=== PATIENT | female | born 1950 | race Caucasian/White ===

== ENCOUNTER → 2017-01-06 | Outpatient (CLI) | payer OTHER ==
[~2017-01-06] MED LIST: DOXY-300 PO; LEVO50TA PO; MEDLIST
[2017-01-13 05:32] LABS: ANTI-CENTROMERE AB <1.0 NEG AI (<1.0 NEG); ANTI-SS-A >8.0 POS AI (<1.0 NEG); ANTI-SS-B >8.0 POS AI (<1.0 NEG); DNA ds CRITHIDIA NEGATIVE (NEGATIVE); Sm Antibody <1.0 NEG AI (<1.0 NEG)
[2017-01-14 11:14] LABS: ANA TITER > OR = 1:1280 TITER (<1:40)
== END | disposition home or self-care (01) ==
LOC: C.LAB1850 14:37
PROVIDERS: ATTEND Internal Medicine Rheumatology
DX: M35.00 Sjogren syndrome, unspecified (principal); R76.8 Other specified abnormal immunological findings in serum

== ENCOUNTER 2017-03-12 07:16 | Emergency (ER) | payer OTHER ==
[~2017-03-12] VITALS: Ht 162.6 cm; Wt 72.0 kg
[~2017-03-12 07:16] MED LIST changes: -DOXY-300 PO; -LEVO50TA PO
[2017-03-12 07:18] VITALS: BP 141/84; PULSE 73; TEMP 36.5; O2SAT 95; Ht 162.6 cm; Wt 72.0 kg
[2017-03-12] MEDS ORDERED: DOXY-300 PO (07:54)
--- NOTE | 2017-03-12 07:54 | EMERGENCY ROOM VISIT NOTE ---
History First contact with patient: 07:22 Chief Complaint: BITE Stated Complaint: SWOLLEN PATCH ON LEFT HIP FROM BITE History of Present Illness The patient is a 67 year old female who presents to the Emergency Room via private vehicle with complaints of "swollen patch on left hip from bite". The patient states that yesterday at approximately 10:30 AM, she was wearing exercise pants, when she saw and felt a sting/bite on the left lateral hip. She states that she saw a large fly. She states that the area was initially itchy and painful, however now it is red hot and swollen. Her tetanus is not up -to-date. She denies any throat swelling, trouble breathing, fevers, chills, nausea, vomiting. Review of Systems A complete 10-point Review of Systems was discussed with the patient, with pertinent positives and negatives listed in the History of Present Illness. All remaining Review of Systems questions can be considered negative unless otherwise specified. Past Medical/Surgical History Skin problems. Family History No significant family history. Social History Smoking Status: Never Smoker Patient lives at home and works locally. Current/Historical Medications Scheduled Doxycycline (Monohydrate) (Doxycycline), 100 MG PO BID Levothyroxine Sodium (Synthroid), 50 MCG PO DAILY Physical Exam Vital Signs Date Time Temp Pulse Resp B/P (MAP) Pulse Ox O2 Delivery O2 Flow Rate FiO2 03/12/17 07:18 36.5 73 18 141/84 95 Room Air Physical Exam VITAL SIGNS - Vital signs and nursing notes were reviewed. Afebrile, hypertensive at 141/84, non-tachycardic and saturating well on room air 95%. GENERAL -67-year-old female appearing her stated age who is in no acute distress. Communicates well with provider and answers questions appropriately. SKIN - overlying the left lateral hip there is a 6 cm x 7 cm erythematous region. No fluctuant mass appreciated. No drainage. LUNGS - Chest wall symmetric without accessory muscle use, intercostals retractions, or central cyanosis. Normal vesicular breath sounds CTA B/L. No wheezes, rales, or rhonchi appreciated. CARDIAC - RRR with S1/S2. No murmur, rubs, or gallops appreciated. Medical Decision & Procedures Medications Administered Medications (Trade) Dose Ordered Sig/Joan Route Start Time Stop Time Status Last Admin Dose Admin Diphtheria/ Pertussis/Tetanus Vacc (Adacel Inj) 0.5 ml ONCE ONCE IM. 03/12/17 08:15 03/12/17 08:16 DC 03/12/17 08:12 0.5 ML Medical Decision Patient was seen and evaluated as above. After obtaining a thorough history and physical examination it was evident the patient was likely experiencing a cellulitic infection of the left lateral hip. She has no fevers, chills, nausea or vomiting. No evidence of SIRS or sepsis. There is no purulent drainage or evidence of abscess. She'll be treated in the outpatient setting with oral antibiotics. She was offered Keflex and Bactrim, but notes that taking Bactrim in the past has been difficult. For this reason, I will choose doxycycline. The area was circled with a felt tip pen. She was instructed to return if the redness extended beyond 1 inch. She was informed that if this worsens she may need IV antibiotics, and potentially admission to the hospital secondary to infection. I informed her that broad-spectrum antibiotics at this time are warranted. She verbalized understanding. Patient case was also discussed with my attending, who also personally evaluated the patient. She was given her tetanus shot. She appears stable for discharge. She was educated upon worrisome symptoms which to return, had questions prior to discharge, and was discharged home in good condition. She is a follow-up with her family doctor regarding today's visit. In evaluation treatment this patient following differential diagnoses were entertained: Sialitis, abscess, localized skin reaction, among others. Medication Reconcilliation Current Medication List: was personally reviewed by me Blood Pressure Screening Patient's blood pressure: Elevated blood pressure Blood pressure disposition: Elevated BP felt to be situational, Did not require urgent referral Impression Primary Impression: Cellulitis Departure Information Dispostion Home / Self-Care Condition GOOD Prescriptions Doxycycline (Monohydrate) (Doxycycline) 100 Mg Cap 100 MG PO BID for 10 Days, #20 TABS Prov: James Siddiqi PA-C 03/12/17 Referrals Praveen Niec M.D. (PCP) Forms HOME CARE DOCUMENTATION FORM, IMPORTANT VISIT INFORMATION Patient Instructions My [facility] Additional Instructions You were seen in the emergency department for an infection on your left lateral thigh. You have been prescribed Doxycycline to be taken as prescribed. This is an antibiotic. All antibiotics have the potential to cause diarrhea. Stop this medication and contact a medical provider if you were to develop any significant adverse side effects including: wheezing, shortness of breath, passing out, vomiting, or a diffuse rash. Always take antibiotics as directed and COMPLETE the ENTIRE course regardless of the improvement of your symptoms. Protect yourself with sunscreen while on this antibiotic as it increases your skin's sensitivity to the light and cause bad sunburns. In addition, you should be sure to take this pill after eating. Make sure the pill is completely swallowed as this medication can cause irritation to the lining of the esophagus. Do NOT drink milk or eat anything with large amounts of Calcium in them 1 hour prior to taking this medication as this will decrease the effectiveness of the medication. Please watch for worsening redness, swelling or drainage from the wound. If he started expressing nausea, vomiting, fevers or chills please return immediate. If the redness extends beyond the marked line by 1 inch please return. Please follow-up with your family doctor regarding today's visit. Please return to the emergency department with any new/concerning symptoms.
[2017-03-12] MEDS ORDERED: LEVO50TA PO (08:00)
[2017-03-12] MEDS ORDERED: DIPHTHERIA/TETANUS/PERTUSSIS 0.5 ML SYR/VIAL IM. ONE (08:15)
== END 2017-03-12 07:55 | disposition home or self-care (01) ==
LOC: C.EDB 07:17 → C.EDA 07:55
DX: L03.116 Cellulitis of left lower limb (principal); Z23 Encounter for immunization

== ENCOUNTER 2017-09-30 04:47 | Inpatient (IN) | payer OTHER ==
[~2017-09-30] VITALS: Ht 160 cm; Wt 70.2 kg
[~2017-09-30 04:47] MED LIST changes: +DOXY-300 PO; -MEDLIST
--- NOTE | 2017-09-30 06:22 | EMERGENCY ROOM VISIT NOTE ---
History Report prepared by Maria Teresa: Lana Bryant Under the Supervision of: Dr. Taylor Rodriguez D.O. First contact with patient: 05:09 Chief Complaint: CARDIAC ASSESSMENT Stated Complaint: GENERAL ILLNESS Nursing Triage Summary: Pt reports exercising yesterday morning, cardio and lifting weights. Last night around 10pm patient awoke from her sleep feeling the left side of her neck racing and she felt like her heart was skipping beats. Pt reports that her heart rate is normaly in the 60s resting but has been in the 70s -80s all night. Pt also had increase in blood pressure, EMS reports 163/100. Pt does not take any medication for blood pressure. Pt denies SOB or chest pain. Pt denies any pain at this time. hx mitral valve prolapse. History of Present Illness The patient is a 67 year old female who presents to the Emergency Room for a cardiac assessment secondary worsening episodes of her heart pounding that began last night. The patient states that last night she went to bed feeling like her heart was pounding, noting that when she woke up she was still experiencing the same symptom. She reports that after several hours, she noticed her heart rate did not lower and it began skipping beats. She notes that normally her heart rate is in the 60's, but as of last night it has been in the 70's and 80's. The patient denies any pain, but notes some discomfort in the middle of her sternum. The patient states that she worked out yesterday, which is normal for her. She reports that she was working in [place] 2 weeks ago , noting she was stressed and experienced some eye infections. The patient denies any personal or family history of heart disease. Source of History: patient Onset: last night Position: chest Quality: other (cardaic assessment secondary to chest pounding) Timing: other (persistent ) Review of Systems See HPI for pertinent positives & negatives. A total of 10 systems reviewed and were otherwise negative. Past Medical & Surgical Medical Problems: (1) Abnormal electrocardiogram [ECG] [EKG] (2) Chest pain (3) Skin problem Family History Patient reports no known family medical history. No pertinent family history. Social History Smoking Status: Never Smoker Drug Use: none Marital Status: single Housing Status: lives alone Occupation Status: employed Current/Historical Medications Scheduled Levothyroxine Sodium (Synthroid), 50 MCG PO DAILY Allergies Coded Allergies: Ciprofloxacin (Verified Allergy, Unknown, GI SYMPTOMS, 09/30/17) Quinolones (Unverified Allergy, Unknown, GI SYMPTOMS, 09/30/17) Meperidine (Unverified Adverse Reaction, Mild, NAUSEA, 09/30/17) Physical Exam Vital Signs Date Time Temp Pulse Resp B/P (MAP) Pulse Ox O2 Delivery O2 Flow Rate FiO2 09/30/17 08:05 74 12 97 09/30/17 08:00 145/88 09/30/17 07:52 125/75 09/30/17 07:35 71 8 92 09/30/17 07:30 125/75 09/30/17 07:15 72 8 96 09/30/17 07:00 128/79 09/30/17 06:48 157/91 09/30/17 06:45 73 8 96 09/30/17 06:30 77 19 149/104 95 Room Air 09/30/17 06:00 69 18 135/92 95 Room Air 09/30/17 05:35 69 09/30/17 05:30 69 20 120/81 96 Room Air 09/30/17 04:59 Room Air 09/30/17 04:59 Room Air 09/30/17 04:59 36.6 74 12 136/87 97 Room Air Physical Exam HEENT: Head - normocephalic and atraumatic Pupils are equal, round, and reactive to light. Extraocular eye muscles are intact, and sclera are anicteric. Nose - moist nasal mucosa without discharge. Mouth - moist buccal mucosa. Oropharynx is nonerythematous and there is no tonsillar exudate or edema noted. Neck: Supple; no JVD, nuchal rigidity, cervical lymphadenopathy, or auscultated bruits. Heart: Regular rate and rhythm. There is a normal S1 and S2 with no murmurs, clicks, or gallops appreciated. Lungs: Clear to auscultation bilaterally with no wheezes, rales, or rhonchi. Abdomen: Soft, completely nontender, nondistended, with good bowel sounds. There are no palpable pulsatile masses or hepatosplenomegaly. There is no guarding, rigidity, or rebound noted. Extremities: No evidence of cyanosis, clubbing, or edema. There are easily palpable peripheral pulses. Skin: warm and dry with good turgor and no rashes. Medical Decision & Procedures ER Provider Diagnostic Interpretation: Laboratory results per my review. CHEST ONE VIEW PORTABLE CLINICAL HISTORY: Atypical chest pain COMPARISON STUDY: No previous studies for comparison. FINDINGS: The cardiac and mediastinal contours are normal. There is no evidence of focal pulmonary consolidation. There is no evidence of failure. No pleural effusions are visualized.[An 8 mm nodule at the left lung base is quite dense despite its small size and therefore, it is felt to be postinflammatory IMPRESSION: No active disease in the chest. Electronically signed by: David Quinones M.D. 09/30/2017 7:03 AM Dictated Date/Time: 09/30/2017 7:02 AM Laboratory Results 09/30/17 06:23 09/30/17 06:23 Test 09/30/17 06:23 Red Blood Count 4.72 M/uL (4.2-5.4) Mean Corpuscular Volume 93.9 fL (80-100) Mean Corpuscular Hemoglobin 32.0 pg (25-34) Mean Corpuscular Hemoglobin Concent 34.1 g/dl (32-36) RDW Standard Deviation 47.1 fL (36.4-46.3) RDW Coefficient of Variation 13.7 % (11.5-14.5) Mean Platelet Volume 11.2 fL (7.4-10.4) Prothrombin Time 10.2 SECONDS (9.0-12.0) Prothromb Time International Ratio 1.0 (0.9-1.1) Anion Gap 8.0 mmol/L (3-11) Est Creatinine Clear Calc Drug Dose 62.1 ml/min Estimated GFR () 83.4 Estimated GFR (Non- 71.9 BUN/Creatinine Ratio 29.3 (10-20) Calcium Level 9.4 mg/dl (8.5-10.1) Total Bilirubin 0.5 mg/dl (0.2-1) Direct Bilirubin 0.1 mg/dl (0-0.2) Aspartate Amino Transf (AST/SGOT) 32 U/L (15-37) Alanine Aminotransferase (ALT/SGPT) 33 U/L (12-78) Alkaline Phosphatase 60 U/L (45-117) Total Creatine Kinase 148 U/L (26-192) Creatine Kinase MB 4.2 ng/ml (0.5-3.6) Creatine Kinase MB Ratio 2.8 (0-3.0) Total Protein 8.8 gm/dl (6.4-8.2) Albumin 3.5 gm/dl (3.4-5.0) Thyroid Stimulating Hormone (TSH) 3.540 uIu/ml (0.300-4.500) Laboratory results per my review. Medications Administered Medications (Trade) Dose Ordered Sig/Joan Route Start Time Stop Time Status Last Admin Dose Admin Aspirin (Aspirin Chew) 324 mg NOW STAT PO 09/30/17 08:01 09/30/17 08:05 DC 09/30/17 08:17 324 MG Procedure Oral aspirin ECG Indication: other (heart pounding) Rate (beats per minute): 68 Rhythm: normal sinus Findings: ST depression (lead 3 and aVF), T-wave inversion (Lateral) Comparison ECG Date: Significant changes from 12/2013 Change: Repeat EKG has same concerning changes. ED Course 0548: Past medical records reviewed. The patient was evaluated in room B8. A complete history and physical exam was performed. A twelve-lead EKG was obtained. Patient's electrocardiogram was interpreted by me. Patient had a chest x-ray as described above. An IV lock was initiated and labs were drawn as above. The patient was observing the supervisor curing room and pulse oximeter. I did review a report from an EKG done at [facility] within the last month. It was a normal EKG. 0715: I asked the nursing staff to repeat the patient's EKG with new lead placement. Repeat EKG has same concerning changes. The patient was given oral aspirin. I discussed the findings and plan with the patient and her son. 0720: Discussed the patient's case with [facility]. The patient will be evaluated for further management. Medical Decision The patient is a 67 year old female who presents to the ED for a cardiac assessment. Differential diagnosis includes acute coronary syndrome, GERD, anxiety, and pneumonia. The patient's laboratory results showed: normal white blood cell count, stable H&H, BUN of 24, creatinine of 0.8, glucose of 92, normal LFTs, negative cardiac enzymes, and normal TSH. This is a 67-year-old female patient who presents to the emergency department with some cardiac symptoms. She states that she awoke from sleep and was able to sense her heartbeat in her neck and felt that it was faster than usual. She then developed some discomfort in the epigastrium and lower chest. She became concerned and called 911. She did not think that she could drive herself to the hospital. While here in the emergency department, the patient's symptoms had resolved. Initial cardiac enzymes were negative. However, the patient's EKG was concerning for ischemia in comparison to an EKG from 2014 but also in relationship to an EKG she had within the past month. I've discussed the case with the [facility] Hospitalist and they will evaluate for further management. Medication Reconcilliation Current Medication List: was personally reviewed by me Blood Pressure Screening Patient's blood pressure: Normal blood pressure Consults Time Called: 0720 Consulting Physician: Anu Peters Returned Call: 0720 Discussed the patient's case with Anu Peters. The patient will be evaluated for further management. Impression Primary Impression: Palpitation Additional Impression: Acute electrocardiogram changes Scribe Attestation See HPI for pertinent positives & negatives. A total of 10 systems reviewed and were otherwise negative. Departure Information Dispostion Being Evaluated By Hospitalist Referrals Praveen Nice M.D. (PCP) Forms IMPORTANT VISIT INFORMATION Patient Instructions [facility] Problem Qualifiers
[2017-09-30 06:33] LABS: HEMATOCRIT 44.3 % (37-47); HEMOGLOBIN 15.1 g/dL (12.0-16.0); MEAN CELL VOLUME 93.9 fL (80-100); MEAN CORPUSCULAR HGB CONC 34.1 g/dl (32-36); MEAN PLATELET VOLUME 11.2 fL (7.4-10.4); PLATELET COUNT 249 K/uL (130-400); RED CELL DISTRIBUTION WIDTH CV 13.7 % (11.5-14.5); RED CELL DISTRIBUTION WIDTH SD 47.1 fL (36.4-46.3); WHITE BLOOD COUNT 4.95 K/uL (4.8-10.8)
[2017-09-30 06:48] LABS: ALBUMIN 3.5 gm/dl (3.4-5.0); ALT/SGPT 33 U/L (12-78); BLOOD UREA NITROGEN 24 mg/dl (7-18); CALCIUM 9.4 mg/dl (8.5-10.1); CARBON DIOXIDE 25 mmol/L (21-32); CREATININE 0.83 mg/dl (0.60-1.20); GLUCOSE 92 mg/dl (70-99); POTASSIUM 3.7 mmol/L (3.5-5.1); SODIUM 137 mmol/L (136-145)
[2017-09-30 06:58] LABS: ALKALINE PHOSPHATASE 60 U/L (45-117); AST/SGOT 32 U/L (15-37); CKMB 4.2 ng/ml (0.5-3.6); TOTAL PROTEIN 8.8 gm/dl (6.4-8.2)
--- NOTE | 2017-09-30 07:04 | DIAGNOSTIC IMAGING REPORT ---
CHEST ONE VIEW PORTABLE CLINICAL HISTORY: Atypical chest pain COMPARISON STUDY: No previous studies for comparison. FINDINGS: The cardiac and mediastinal contours are normal. There is no evidence of focal pulmonary consolidation. There is no evidence of failure. No pleural effusions are visualized.[An 8 mm nodule at the left lung base is quite dense despite its small size and therefore, it is felt to be postinflammatory IMPRESSION: No active disease in the chest. Electronically signed by: David Quinones M.D. 09/30/2017 7:03 AM Dictated Date/Time: 09/30/2017 7:02 AM
[2017-09-30] MEDS ORDERED: LEVO50TA PO (08:00)
[2017-09-30] MEDS ORDERED: ASPIRIN 324 MG CHEW PO STA (08:01)
[2017-09-30] MEDS ORDERED: NITROGLYCERIN 0.4 MG SL PER TAB CHARGE SL PRN (08:30)
[2017-09-30] MEDS ORDERED: ONDANSETRON INJ 2 MG/ML 2 ML VIAL IV PRN (08:30)
[2017-09-30] MEDS ORDERED: HEPARIN 25000 UNIT/500 ML D5W ONE (09:41)
[2017-09-30] MEDS ORDERED: HEPARIN SOD 5000 UNIT/0.5 ML CARP ONE (09:42)
[2017-09-30] MEDS ORDERED: HEPARIN 25,000 UNIT/500ML D5W 500 ML IV PRN (10:30)
--- NOTE | 2017-09-30 10:49 | HISTORY & PHYSICAL EXAMINATION ---
DATE OF ADMISSION: 09/30/2017 PRIMARY CARE PHYSICIAN: Meghan CHIEF COMPLAINT: Palpitation with a lower central chest discomfort since around 2:00 a.m. HISTORY OF PRESENT COMPLAINT: She is a 67-year-old female with significant past medical history including lupus erythematosus, Sjogren's disease, sicca syndrome, acquired hypothyroidism, apparently has been complaining of lower central chest discomfort associated with palpitation and tachycardia since 2:00 a.m. this morning. She is a 67-year-old female quite active who does regular exercise including Power training, swimming, biking, and walking and has been seen in [place] about 2 weeks ago. She came back from [place] about 1-1/2 weeks back and started to workout accordingly. While she was in [place], she was not doing anything much, almost resting and doing some official work and was in a lot of stress. She started to workout as usual of her routine and then in the evening, she was noted to have some pounding in her neck and she was thinking that her heart rate was getting high. She checked her pulse, it was 75. Her usual pulse rate is 60 according to her. She went to sleep at 8:39 and then at 2:00 a.m., she woke up with more palpitation, heart rate of 75, but no other symptoms. At 4:00 a.m., she again woke up with palpitation and some neck pounding and at that time, she did have some lower central chest discomfort with questionable nausea, but no other associated symptoms with it. No dizziness, no vomiting. No numbness or tingling in the left upper extremity, jaw or in the neck area. With this kind of symptoms, she came to the Emergency Room. At ER, she was free from pain and her apparent blood test came out to be unremarkable, but her EKG did show a new T inversion including II, III, aVF and V3 to V6, which were not there in August. So, from that point, she was advised for admission to the hospital. PAST MEDICAL HISTORY: Significant for lupus erythematosus, diffuse connected tissue disease, Sjogren's disease, sicca syndrome, chronic rhinitis, acquired hypothyroidism. PAST SURGICAL HISTORY: Significant for minor dental surgery, knee arthroscopy on the left, ligation of the oviduct, tonsillectomy as a child, total hysterectomy for fibroid. FAMILY HISTORY: No history of diabetes, hypertension, or ischemic heart disease in the family. SOCIAL HISTORY: She is single. She has 1 child. She does not smoke. She does not drink and she is quite active. ALLERGIES: CIPROFLOXACIN, meperidine, and quinolones. MEDICATIONS: The only medication she has been taking is Synthroid 75 mcg daily. She also takes multivitamins and calcium tablet as needed. REVIEW OF SYSTEMS: Other systems reviewed, unremarkable except those mentioned in history of present complaint. PHYSICAL EXAMINATION: GENERAL: On examination in the Emergency Room, she was not having any distress. HEENT: Unremarkable. NECK: Supple. VITAL SIGNS: Temperature 36.4, pulse 72, respiration rate initially 19, and blood pressure 125/75, saturation 96% on room air. HEENT: Unremarkable. NECK: Supple. No JVD, no bruit. CHEST: Clear to auscultate bilaterally. HEART: S1, S2 regular. ABDOMEN: Soft, benign, nontender, no organomegaly. Bowel sounds present. EXTREMITIES: Negative for any edema. MUSCULOSKELETAL: Did not show any acute arthritis involving any joint. CENTRAL NERVOUS SYSTEM: She was alert, awake, and oriented x3. No focal sensory and/or motor deficit appreciated. GENITAL: Did not reveal any rash and/or enlargement of lymph nodes. LABORATORY AND DIAGNOSTIC DATA: Labs noted today, white count was 4.95, H&H 15.1/44.3, platelet was 249. Sodium 137, potassium 3.7, chloride 105, carbon dioxide 25, BUN 24, creatinine 0.83. Random glucose 92. LFTs normal. CK-MB 4.2. Troponin was less than 0.015. TSH 3.540. Chest x-ray reported as no active disease in the chest. EKG was in sinus rhythm, rate of 71, normal axis, new T-wave inversion involving II, III, aVF and V4 to V6, which were not there in EKG of August. IMPRESSION AND PLAN: 1. Chest pain with EKG changes. The patient will be admitted to telemetry unit. Given the chest discomfort and EKG changes, we will start her on heparin. The pros and cons of heparin use discussed with the patient. She received 4 Baby aspirin. We will continue with aspirin. We will get a cardiology evaluation for further management for chest pain and EKG changes. We will do serial cardiac enzymes while in the hospital and an echocardiogram. 2. History of Sjogren's syndrome and also lupus erythematosus. She does not have any symptoms from the disease. She seems to be quite inactive and does not take any medications for that. She does not have any arthritic changes or any rash in the skin. 3. Hypothyroidism. Continue with replacement. 4. Gastrointestinal prophylaxis with Protonix. 5. Deep venous thrombosis prophylaxis with heparin IV. 6. Code status: She will be a full code. In my clinical assessment, the beneficiary meets criteria as per CMS for 2 midnights' stay in the hospital. [place]
[2017-09-30 14:15] VITALS: BP 133/90; PULSE 72; TEMP 36.7; O2SAT 96; Ht 160 cm; Wt 70.2 kg
[2017-09-30] MEDS: NSS + 20MEQ KCL 1000ML 1,000 ML IV SCH (15:51)
[2017-09-30] MEDS: PANTOprazole SOD 40 MG TAB PO SCH (16:00)
--- NOTE | 2017-09-30 17:30 | ECHOCARDIOGRAM REPORT ---
*NOTICE TO RECEIVING REPUBLICAN AGENCY This information is strictly Confidential and protected under [place] law. [place] law prohibits you from making any further disclosure of this information unless further disclosure is expressly permitted by the written consent of the person to whom it pertains or is authorized by law. A general authorization for the release of medical or other information is not sufficient for this purpose. Hospital accepts no responsibility if the information is made available to any other person, INCLUDING THE PATIENT. Interpretation Summary * Name: EMRE ABDUL Study Date: 09/30/2017 03:10 PM BP: 125/75 mmHg * Patient Location: .2T\S\E218\S\1 HR: 72 * : 1950 (M/d/yyy) Gender: Female Height: 62 in * Age: 67 yrs Ethnicity: [place] Weight: 165 lb * Ordering Physician: Snicere Smith * Referring Physician: Self, Referred * Performed By: Herlinda Leonard RDCS * * Reason For Study: Chest Pain * BSA: 1.8 m2 * The study was technically adequate. * -- Conclusions -- * There is normal left ventricular wall thickness. * No regional wall motion abnormalities noted. * Ejection Fraction = 55-60%. * Doppler findings do not suggest pulmonary hypertension. * Grade I diastolic dysfunction, (abnormal relaxation pattern). * There is no significant valvular heart disease. Procedure Details * A complete two-dimensional transthoracic echocardiogram was performed (2D, M-mode, Doppler and color flow Doppler). Left Ventricle * The left ventricle is normal in size. * There is normal left ventricular wall thickness. * Left ventricular systolic function is normal. * Ejection Fraction = 55-60%. * The left ventricular wall motion is normal. * No regional wall motion abnormalities noted. Right Ventricle * The right ventricle is normal in size and function. * The right ventricular systolic function is normal as assessed by tricuspid annular plane systolic excursion (TAPSE) (normal >1.5 cm). Atria * The left atrial size is normal. * Right atrial size is normal. * There is no evidence of atrial septal defect, but resolution does not allow assessment for a patent foramen ovale. Mitral Valve * The mitral valve is normal. * There is no mitral valve stenosis. * Significant mitral regurgitation is absent. Tricuspid Valve * The tricuspid valve is normal. * There is no tricuspid stenosis. * Significant tricuspid regurgitation is absent. * Doppler findings do not suggest pulmonary hypertension. Aortic Valve * The aortic valve is trileaflet. * Aortic stenosis is absent. * There is no significant aortic regurgitation. Pulmonic Valve * The pulmonary valve is not well seen, but the Doppler examination is normal without significant regurgitation or stenosis. Great Vessels * The aortic root and proximal ascending aorta are normal sized. Pericardium/Pleural * There is no pericardial effusion. Great Vessels * Normal inferior vena cava diameter and respiratory variation suggests normal central venous pressure. * Normal inferior vena cava size and collapsability with sniff indicates a normal right atrial pressure of 3 mmHg Left Ventricular Diastolic Function * Grade I diastolic dysfunction, (abnormal relaxation pattern). MMode 2D Measurements and Calculations IVSd 0.80 cm IVSs 1.4 cm LVIDd 3.9 cm LVIDs 2.6 cm LVPWd 1.3 cm LVPWs 1.6 cm IVS/LVPW 0.61 FS 34.4 % EDV(Teich) 66.7 ml ESV(Teich) 24.0 ml EF(Teich) 64.1 % EDV(cubed) 60.3 ml ESV(cubed) 17.0 ml EF(cubed) 71.7 % % IVS thick 72.6 % % LVPW thick 19.5 % LV mass(C)d 132.8 grams LV mass(C)dI 75.4 grams/m\S\2 LV mass(C)s 126.2 grams LV mass(C)sI 71.6 grams/m\S\2 SV(Teich) 42.8 ml SI(Teich) 24.3 ml/m\S\2 SV(cubed) 43.2 ml SI(cubed) 24.5 ml/m\S\2 Ao root diam 2.7 cm Ao root area 5.7 cm\S\2 ACS 1.7 cm LA dimension 3.3 cm LA/Ao 1.2 LVAd ap4 28.5 cm\S\2 LVLd ap4 7.4 cm EDV(MOD-sp4) 94.3 ml EDV(sp4-el) 93.1 ml LVAs ap4 14.4 cm\S\2 LVLs ap4 6.7 cm ESV(MOD-sp4) 28.8 ml ESV(sp4-el) 26.2 ml EF(MOD-sp4) 69.5 % EF(sp4-el) 71.9 % LVAd ap2 23.8 cm\S\2 LVLd ap2 7.7 cm EDV(MOD-sp2) 63.9 ml EDV(sp2-el) 62.0 ml LVAs ap2 11.3 cm\S\2 LVLs ap2 6.2 cm ESV(MOD-sp2) 19.4 ml ESV(sp2-el) 17.4 ml EF(MOD-sp2) 69.6 % EF(sp2-el) 71.9 % LVLd %diff 4.2 % EDV(MOD-bp) 78.9 ml LVLs %diff -7.77 % ESV(MOD-bp) 24.2 ml EF(MOD-bp) 69.3 % SV(MOD-sp4) 65.5 ml SI(MOD-sp4) 37.2 ml/m\S\2 SV(MOD-sp2) 44.5 ml SI(MOD-sp2) 25.3 ml/m\S\2 SV(MOD-bp) 54.7 ml SI(MOD-bp) 31.1 ml/m\S\2 SV(sp4-el) 66.9 ml SI(sp4-el) 38.0 ml/m\S\2 SV(sp2-el) 44.6 ml SI(sp2-el) 25.3 ml/m\S\2 Doppler Measurements and Calculations MV E max earle 44.6 cm/sec MV A max earle 78.6 cm/sec MV E/A 0.57 MV dec time 0.31 sec Ao V2 max 116.2 cm/sec Ao max PG 5.4 mmHg Ao max PG (full) 0.72 mmHg LV V1 max PG 4.7 mmHg LV V1 max 108.2 cm/sec PA V2 max 88.2 cm/sec PA max PG 3.1 mmHg PI max earle 118.1 cm/sec PI max PG 5.6 mmHg PI dec slope 130.7 cm/sec\S\2 PI P1/2t 264.7 msec
--- NOTE | 2017-09-30 18:29 | Cardiology Consultation ---
Cardiology Consultation Date of Consultation: Sep 30, 2017 History of Present Illness Patient is a 67 year old female seen in cardiology consultation per the request of Dr Smith. The patient's primary care provider is Dr. Praveen Nice of [facility]. This is her first cardiology encounter. She states that she was in her normal state of health yesterday. She exercised as per her typical routine and felt as if her heart rate was elevated. At 2 AM she felt her heart rate was elevated for her with heart rate in the mid 70 beat per minute range. She is able to get back to sleep and then at 4 AM she woke up again she took her heart rate by measuring her own carotid pulse with her fingers and noted a heart rate in the range of 88-90 bpm per her report with skipped beats. She called 911. Apparently her systolic blood pressure was in the range of 190 mmHg. She presented to the emergency room and no significant arrhythmia was found. Her initial EKG revealed sinus rhythm with borderline subtle T-wave inversions in inferior and lateral leads. Repeat EKG performed on 09/30/17 at 7:40 AM revealed normal sinus rhythm at 71 bpm with inverted T waves in the inferior leads as well as leads V3 to V6 suggestive of anterolateral ischemia. The patient actually had an outpatient EKG performed on 08/31/17 at [facility] for complaint of palpitations at that time normal sinus rhythm at 70 bpm was noted with mild diffuse nonspecific lateral T wave flattening but the T-wave inversions noted this morning are certainly a new development. During my discussion with her the patient was completely asymptomatic from an angina standpoint. 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 She typically exercises almost every day of the week for up to an hour and a half performing aerobic activity, swimming, and resistance training at the [facility]. 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 She had been in [place] during the months of April and June. She then returned for a week to [place], and his been back in the [facility] for 2 weeks. History Past Medical History: 1. History of overlap connective tissue disease, Sjogren's as per rheumatology note June 2016. She is not on long-term steroid therapy 2. Hypothyroidism Past Surgical History: 1. History of hysterectomy in 1989 for fibroids 2. Knee arthroscopy 2013 3. Colonoscopy 4. 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 Writes curriculum in [place]. Review Of Systems See above for pertinent positives & negatives. A total of 10 systems reviewed and were otherwise negative. Allergies Coded Allergies: Ciprofloxacin (Verified Allergy, Unknown, GI SYMPTOMS, 09/30/17) Quinolones (Unverified Allergy, Unknown, GI SYMPTOMS, 09/30/17) Meperidine (Unverified Adverse Reaction, Mild, NAUSEA, 09/30/17) Medications Reported Home Medications Medications Dose Route/Sig Max Daily Dose Days Date Category Synthroid (Levothyroxine Sodium) 50 Mcg Tab 50 Mcg PO DAILY 03/12/17 Reported Physical Exam Vital Signs (Last 8hrs): Last 8 Hrs Date Time Temp Pulse Resp B/P (MAP) Pulse Ox O2 Delivery O2 Flow Rate FiO2 09/30/17 14:15 36.7 72 18 133/90 96 Room Air 09/30/17 13:52 36.6 74 17 129/76 97 09/30/17 13:40 74 17 09/30/17 13:10 75 17 97 09/30/17 13:00 129/76 09/30/17 12:40 76 13 93 09/30/17 12:32 72 09/30/17 12:30 126/82 09/30/17 12:15 78 17 131/82 95 Room Air 09/30/17 12:10 75 96 09/30/17 12:00 131/82 09/30/17 11:40 72 16 95 09/30/17 11:30 129/87 09/30/17 11:10 73 14 98 09/30/17 11:00 128/81 09/30/17 10:40 75 23 09/30/17 10:31 119/82 09/30/17 10:10 74 10 97 09/30/17 10:00 140/81 General Appearance: Alert and Oriented x3. NAD. Head: Normocephalic Atraumatic. Eyes: PERRLA, EOMI, conjunctiva and sclera clear Neck: Supple. No carotid bruits noted. No JVD. No HJD. Respiratory: Breath sounds clear to auscultation bilaterally. No w/r/r. Cardiovascular: Reg rate and rhythm. S1 and S2 noted. No murmurs, rubs, gallops. PMI non displace. Abdomen: Normal bowel sounds, soft nontender. no abdominal bruits. Extremities: No edema, no clubbing or cyanosis. distal pulses 2/4 bilaterally. Neuro: No focal deficits. Psychiatric: Normal affect. Data Last Resulted 09/30/17 06:23 Last Resulted 09/30/17 06:23 Past 24 Hours Test 09/30/17 06:23 09/30/17 14:54 Range/Units Creatine Kinase MB 4.2 H 0.5-3.6 ng/ml Creatine Kinase MB Ratio 2.8 0-3.0 Prothromb Time International Ratio 1.0 0.9-1.1 Prothrombin Time 10.2 9.0-12.0 SECONDS Total Creatine Kinase 148 26-192 U/L Troponin I < 0.015 < 0.015 0-0.045 ng/ml EKG as outlined above. Telemetry with sinus rhythm without arrhythmia Assessment & Plan Impression: 67-year-old female 1. Presenting symptoms consistent with palpitations, perhaps increased cardiac awareness, no nury anginal symptoms 2. Patient however has developed interval T-wave inversion suggestive inferolateral ischemia on EKG that were not present on prior EKG performed as an outpatient at [facility] 3. No family history of ischemic heart disease 4. No history of dyslipidemia, most recent outpatient lipid panel performed in June 2017 included total cholesterol 174 LDL cholesterol 91, HDL cholesterol 67, tragus rate 74 Plan: The patient's cardiac enzymes have been negative 2 thus far. Resting echocardiogram revealed normal wall motion. She did have an episode where she had what she describes as a "blood clot" to her left eye when she was in [place] several months ago. She saw a local physician there was counseled that she should consider going on blood pressure medications. She recalls that her systolic blood pressure was in the mid 130 mm Hg range. She has had no visual changes and no interim problems. Her cholesterol is excellent. She exercises routinely. Recommend continuing unfractionated heparin drip for now and trending cardiac enzymes as well as repeat EKG. She is to going to be reassessed by Dr. Nicole was rounding for service tomorrow for further consideration of workup to include stress testing versus chronic catheterization. An outpatient desk clerks supervisor may be necessary for further delineation of her subjective palpitations since nothing is evidence thus far on telemetry.
[2017-09-30 18:45] VITALS: BP 135/84; PULSE 69; TEMP 36.6; O2SAT 96
[2017-09-30 23:43] VITALS: BP 110/68; PULSE 70; TEMP 36.5; O2SAT 95
[2017-10-01] MEDS: NSS + 20MEQ KCL 1000ML 1,000 ML IV SCH ×2 (01:00→11:21)
[2017-10-01 03:25] VITALS: BP 115/70; PULSE 66; TEMP 36.5; O2SAT 95
[2017-10-01] MEDS: LEVOTHYROXINE 50 MCG TAB PO SCH (05:39)
[2017-10-01 08:07] VITALS: BP 120/78; PULSE 61; TEMP 36.5; O2SAT 97
[2017-10-01] MEDS: PANTOprazole SOD 40 MG TAB PO SCH (08:11)
[2017-10-01] MEDS: ASPIRIN 81 MG ECTAB PO SCH (08:11)
[2017-10-01 08:45] LABS: HEMATOCRIT 43.5 % (37-47); HEMOGLOBIN 14.4 g/dL (12.0-16.0); MEAN CORPUSCULAR HEMOGLOBIN 31.1 pg (25-34); MEAN CORPUSCULAR HGB CONC 33.1 g/dl (32-36); MEAN PLATELET VOLUME 11.1 fL (7.4-10.4); PLATELET COUNT 239 K/uL (130-400); RED CELL DISTRIBUTION WIDTH SD 48.3 fL (36.4-46.3); WHITE BLOOD COUNT 4.63 K/uL (4.8-10.8)
[2017-10-01 09:20] LABS: CALCIUM 9.1 mg/dl (8.5-10.1); CREATININE 0.7 mg/dl (0.60-1.20); POTASSIUM 4.2 mmol/L (3.5-5.1)
[2017-10-01 09:38] LABS: PTT PATIENT 55.1 SECONDS (21.0-31.0)
[2017-10-01 12:15] VITALS: BP 138/78; PULSE 71; TEMP 36.7; O2SAT 94
--- NOTE | 2017-10-01 14:11 | Progress Note ---
Internal Med Progress Note Date of Service: Oct 01, 2017. Provider Documentation: SUBJECTIVE: The patient was seen and examined Denies any symptoms No more pounding in neck OBJECTIVE: Vital Signs-as noted below Exam: General-No distress at rest Eyes-normal ENT-normal Neck-supple Lungs-Clear to ausucltate bilaterally Heart-Regular,no murmur Abdomen-Benign,no masses,bowel sound present Extremities-NO edema Neuro-AAOx3 No focal neuro deficit Lab data as noted below. ASSESSMENT & PLAN: Chest pain with EKG changes. Has been on Aspirin and Heparin No ACS but EKG changes are not any better Appreciate cardiology input History of Sjogren's syndrome and also lupus erythematosus. No acute symptoms from that Not been taking any medications Hypothyroidism. Continue with replacement. Gastrointestinal prophylaxis with Protonix. Deep venous thrombosis prophylaxis with heparin IV. Code status: She will be a full code. DISPOSITION Likely home in an day or two Vital Signs: Date Time Temp Pulse Resp B/P (MAP) Pulse Ox O2 Delivery O2 Flow Rate FiO2 10/01/17 12:15 36.7 71 20 138/78 (98) 94 Room Air 10/01/17 08:07 36.5 61 18 120/78 (92) 97 Room Air 10/01/17 08:00 Room Air 10/01/17 04:05 Room Air 10/01/17 03:25 36.5 66 18 115/70 (85) 95 Room Air 10/01/17 00:05 Room Air 09/30/17 23:43 36.5 70 18 110/68 (82) 95 Room Air 09/30/17 20:00 Room Air 09/30/17 18:45 36.6 69 18 135/84 (101) 96 Room Air 09/30/17 14:15 36.7 72 18 133/90 96 Room Air Lab Results: Results Past 24 Hours Test 09/30/17 14:54 09/30/17 15:44 09/30/17 20:04 10/01/17 02:26 Range/Units Troponin I < 0.015 < 0.015 < 0.015 0-0.045 ng/ml Activated Partial Thromboplast Time 66.0 21.0-31.0 SECONDS Partial Thromboplastin Ratio 2.5 Test 10/01/17 08:24 Range/Units White Blood Count 4.63 4.8-10.8 K/uL Red Blood Count 4.63 4.2-5.4 M/uL Hemoglobin 14.4 12.0-16.0 g/dL Hematocrit 43.5 37-47 % Mean Corpuscular Volume 94.0 80-100 fL Mean Corpuscular Hemoglobin 31.1 25-34 pg Mean Corpuscular Hemoglobin Concent 33.1 32-36 g/dl RDW Standard Deviation 48.3 36.4-46.3 fL RDW Coefficient of Variation 14.0 11.5-14.5 % Platelet Count 239 130-400 K/uL Mean Platelet Volume 11.1 7.4-10.4 fL Activated Partial Thromboplast Time 55.1 21.0-31.0 SECONDS Partial Thromboplastin Ratio 2.1 Sodium Level 139 136-145 mmol/L Potassium Level 4.2 3.5-5.1 mmol/L Chloride Level 110 98-107 mmol/L Carbon Dioxide Level 22 21-32 mmol/L Anion Gap 7.0 3-11 mmol/L Blood Urea Nitrogen 15 7-18 mg/dl Creatinine 0.70 0.60-1.20 mg/dl Est Creatinine Clear Calc Drug Dose 71.3 ml/min Estimated GFR () 102.5 Estimated GFR (Non- 88.4 BUN/Creatinine Ratio 21.2 10-20 Random Glucose 94 70-99 mg/dl Calcium Level 9.1 8.5-10.1 mg/dl Troponin I < 0.015 0-0.045 ng/ml
[2017-10-01 16:21] VITALS: BP 116/74; PULSE 66; TEMP 36.7; O2SAT 96
--- NOTE | 2017-10-01 16:56 | CARDIOLOGY PROGRESS NOTE ---
DATE: 10/01/2017 CARDIOLOGY FOLLOWUP SUBJECTIVE: The patient is seen and examined at the bedside. No recurrent palpitations overnight. Admitted through the ER with a feeling of "heart pounding" in the evening of 09/29/2017. Denies any chest discomfort or shortness of breath. Initial ECGs demonstrate T-wave flattening with further EKGs demonstrating diffuse T-wave inversions. Repeat ECG again demonstrates T-wave flattening. The patient continues to adamantly deny any exertional chest pain or unusual shortness of breath. 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 She worked out quite strenuously on without exertional complaints. Her resting 2D transthoracic echo demonstrates no regional wall motion abnormalities or significant valvular disease. Her cardiac enzymes are undetectable. Review of telemetry demonstrates sinus rhythm with rare PVCs. The patient currently resting comfortably. Offers no complaints. REVIEW OF SYSTEMS: The pertinent positive noted above, a comprehensive 10-system review is otherwise negative. MEDICATIONS: Reviewed via EMR. Please see list for details. LABORATORY DATA: Cardiac enzymes are negative x5 sets. Sodium 139, potassium 4.2, chloride 110, CO2 22, BUN is 15, creatinine is 0.70. White blood cell count 4.63, hemoglobin is 14.4, platelet count is 239. INR is 1.0. IMAGING DATA: Chest x-ray on admission is normal. PHYSICAL EXAMINATION: VITAL SIGNS: Temperature is 36.7 degrees centigrade, pulse 66 beats per minute and regular, respiratory rate is 18 breaths per minute, blood pressure 116/74, and SaO2 is 96% on room air. GENERAL: NAD, awake, alert and oriented x3. HEENT: Mucous membranes are moist. No scleral icterus. Conjunctivae pink. NECK: Supple without JVD or HJR. No carotid bruit. HEART: Regular with a normal S1 and S2. There is no murmur, rub, or gallop. LUNGS: Clear without rales, rhonchi or wheeze. ABDOMEN: Soft, nontender. No rebound or guarding. Normal bowel sounds. EXTREMITIES: Warm and dry. There is no clubbing, cyanosis, or edema. NEUROLOGIC: Demonstrates no focal motor deficit. FINAL IMPRESSION: 1. A 67-year-old female admitted with palpitations. Transient T-wave inversions noted without associated anginal symptoms. Her cardiac enzymes are undetectable. Baseline echocardiogram within normal limits. 2. History of Sjogren syndrome. PLAN AND RECOMMENDATIONS: I had a long discussion with the patient at bedside regarding her transient ECG changes. I explained that these changes may represent an underlying ischemic heart disease, however, with lack of anginal symptoms, underlying CAD less likely. We discussed further options regarding evaluation of potential ischemia including stress testing versus cardiac catheterization. After a long discussion, we will proceed with exercise stress echocardiography in the a.m. The patient understands if there are any abnormalities on this test, will likely require cardiac catheterization for definitive diagnosis at that time. Intravenous heparin will be stopped today. Plan for stress testing in a.m. [facility]
[2017-10-01 19:21] VITALS: BP 109/69; PULSE 75; TEMP 36.7; O2SAT 97
[2017-10-02] VITALS (7 sets, daily range): BP systolic 110–144; BP diastolic 53–86; PULSE 61–90; TEMP 36.2–36.7; O2SAT 95–97
[2017-10-02] MEDS: LEVOTHYROXINE 50 MCG TAB PO SCH (06:12)
[2017-10-02] MEDS: ASPIRIN 81 MG ECTAB PO SCH (08:24)
[2017-10-02] MEDS: PANTOprazole SOD 40 MG TAB PO SCH (08:25)
[2017-10-02 09:13] LABS: PTT PATIENT 27.6 SECONDS (21.0-31.0)
--- NOTE | 2017-10-02 09:56 | EXERCISE STRESS ECHO ---
*NOTICE TO RECEIVING DEMOCRAT AGENCY This information is strictly Confidential and protected under [place] law. [place] law prohibits you from making any further disclosure of this information unless further disclosure is expressly permitted by the written consent of the person to whom it pertains or is authorized by law. A general authorization for the release of medical or other information is not sufficient for this purpose. Hospital accepts no responsibility if the information is made available to any other person, INCLUDING THE PATIENT. Interpretation Summary * Name: EMRE ABDUL Study Date: 10/02/2017 07:27 AM BP: 108/61 mmHg * [facility]\S\N281\S\1 HR: 88 * : 1950 (M/d/yyy) Gender: Female Height: 63 in * Age: 67 yrs Ethnicity: [place] Weight: 154 lb * Ordering Physician: Aldo Nicole * Referring Physician: Self, Referred * Performed By: Thea Fritz RDCS * * Reason For Study: Abnormal EKG * BSA: 1.7 m2 * STRESS STUDY: Normal exercise stress echocardiogram. No echocardiographic or ECG evidence of myocardial ischemia having achieved heart rate adequate for diagnostic purposes. * _ workload achieved. * Exercise capacity is above average. Procedure Details * ECHOEX, CPT #19389 Left Ventricle * Ejection Fraction = 55-60%. * The left ventricular ejection fraction increases normally with stress. The left ventricular end-systolic cavity size reduces post-stress (normal response). The left ventricular wall motion with stress is normal. * Resting wall motion: Normal. Stress wall motion: Appropriate increase in Left ventricular systolic function and decrease in cavity size. No stress induced segmental wall motion abnormalities. Stress Parameters * The baseline ECG displays normal sinus rhythm. * Baseline ECG: diffuse nonspecific T wave abnormality. * Stress ECG: No ST changes. No arrhythmias. * The stress portion of this study was personally supervised by the undersigned interpreting physician. * Rest heart rate was '88' BPM. * Rest blood pressure was '108/61' * Maximum heart rate achieved was 157 bpm. * Maximum heart rate was 103 % of maximum age-predicted heart rate. * Maximum blood pressure was '187/79' * Total exercise time was '9:16' * Maximum exercise MET level achieved was '10.50' METS * Maximum treadmill speed was '4.20' miles per hour. * Maximum treadmill elevation was '16.00'% grade. * Exercise was terminated due to 'achieving target heart rate' * The patient exhibited fatigue during exercise. * Normal blood pressure response to exercise.
--- NOTE | 2017-10-02 10:02 | Cardiology Follow-Up ---
Subjective General Date of Service: Oct 02, 2017. Pt evaluation today including: conversation w/ patient, physical exam, chart review, lab review, review of studies, review of inpatient medication list History of Present Illness The patient is a 67 year old female seen in follow up. Feels well today. No chest discomfort. Denies palpitations. Offers no complaints. Allergies Coded Allergies: Ciprofloxacin (Verified Allergy, Unknown, GI SYMPTOMS, 09/30/17) Quinolones (Unverified Allergy, Unknown, GI SYMPTOMS, 09/30/17) Meperidine (Unverified Adverse Reaction, Mild, NAUSEA, 09/30/17) Social History Smoking Status: Never Smoker Hx Tobacco Use In Past Year?: No Hx Alcohol Use - Type And Amou: Yes (OCC) Hx Substance Use - Type And Am: No Problem List Medical Problems: (1) Acute electrocardiogram changes Status: Acute (2) Cellulitis Status: Acute (3) Palpitation Status: Acute Review of Systems Respiratory: No cough, No sputum, No wheezing, No shortness of breath, No dyspnea at rest, No hemoptysis Cardiac: No chest pain, No orthopnea, No PND, No edema, No palpitations Physical Exam Vital Signs Last Vital Signs Documentation Date Time Temp Pulse Resp B/P (MAP) Pulse Ox O2 Delivery O2 Flow Rate FiO2 10/02/17 08:00 Room Air 10/02/17 07:52 36.2 90 18 144/86 (105) 97 Physical Exam Constitutional: General Apperance: heathly-appearing Level of Distress: NAD Head: normocephalic, atraumatic ENMT: normal ENT inspection Neck: supple, trachea midline Lungs: Auscultation: breath sounds normal, no wheezing, no rales/crackles, no rhonchi Cardiovascular: Heart Auscultation: RRR, normal S1, normal S2, no murmurs Extremities: no cyanosis, no edema, no clubbing, no ulcers Neurologic: Cranial Nerves: grossly intact Assessment and Plan Assessment and Plan Impression: 1. 67-year-old female admitted with palpitations. Telemetry demonstrates rare PVC's. Transient T-wave inversions noted without associated anginal symptoms. Her cardiac enzymes are undetectable. Baseline echocardiogram within normal limits. Exercise stress echo negative for inducible ischemia at high work load. 2. History of Sjogren syndrome. Plan / Recommendations: Results of stress echocardiogram discussed with patient. All questions answered to her satisfaction. I recommended conservative management of PVC's. Discussed importance of maintaining adequate hydration and electrolyte replacement. No further cardiac testing at this time. Laboratory Results Last 24 Hours Test 10/02/17 08:12 Activated Partial Thromboplast Time 27.6 SECONDS Partial Thromboplastin Ratio 1.1
--- NOTE | 2017-10-02 12:08 | Progress Note ---
Internal Med Progress Note Date of Service: Oct 02, 2017. Provider Documentation: SUBJECTIVE: The patient was seen and examined Denies any symptoms No more pounding in neck No arrhythmia noted Negative Stress ECHO this AM OBJECTIVE: Vital Signs-as noted below Exam: General-No distress at rest Eyes-normal ENT-normal Neck-supple Lungs-Clear to ausucltate bilaterally Heart-Regular,no murmur Abdomen-Benign,no masses,bowel sound present Extremities-NO edema Neuro-AAOx3 No focal neuro deficit Lab data as noted below. ASSESSMENT & PLAN: Chest pain with EKG changes. Has been on Aspirin and Heparin No ACS but EKG changes are not any better Appreciate cardiology input No more symptoms and no arrhythmia in Monitor S/P Negative Stress ECHO Wants to go home Advised to take things easy for a week History of Sjogren's syndrome and also lupus erythematosus. No acute symptoms from that Not been taking any medications Hypothyroidism. Continue with replacement. Gastrointestinal prophylaxis with Protonix. Deep venous thrombosis prophylaxis with heparin IV. Code status: She will be a full code. DISPOSITION Likely home in an day or two Vital Signs: Date Time Temp Pulse Resp B/P (MAP) Pulse Ox O2 Delivery O2 Flow Rate FiO2 10/02/17 11:14 36.7 83 18 120/77 (91) 96 10/02/17 11:08 36.7 61 18 114/53 (73) 95 10/02/17 08:00 Room Air 10/02/17 07:52 36.2 90 18 144/86 (105) 97 Room Air 10/02/17 04:32 36.4 66 18 119/72 (88) 96 Room Air 10/02/17 04:05 Room Air 10/02/17 01:42 36.4 62 18 115/80 (92) 95 Room Air 10/02/17 00:10 36.7 72 18 110/68 (82) 96 Room Air 10/02/17 00:02 Room Air 10/01/17 20:05 Room Air 10/01/17 19:21 36.7 75 18 109/69 (82) 97 Room Air 10/01/17 16:21 36.7 66 18 116/74 (88) 96 10/01/17 16:00 Room Air 10/01/17 12:15 36.7 71 20 138/78 (98) 94 Room Air Lab Results: Results Past 24 Hours Test 10/02/17 08:12 Range/Units Activated Partial Thromboplast Time 27.6 21.0-31.0 SECONDS Partial Thromboplastin Ratio 1.1
[2017-10-02] MEDS ORDERED: ASPEC81 PO (12:13)
--- NOTE | 2017-10-02 12:16 | Discharge Instructions ---
Discharge Instructions Date of Service Oct 02, 2017. Admission Reason for Admission: Abnormal Electrocardiogram, Chest Pain Discharge Discharge Diagnosis / Problem: Chest pain,EKG changes-No ACS and Negative Stress ECHO Discharge Goals Goal(s): Prevent Disease Progression Activity Recommendations Activity Limitations: resume your previous activity . Instructions / Follow-Up Instructions / Follow-Up Dr Christianson on 10/04/17 at 12:25 PM Current Hospital Diet Patient's current hospital diet: AHA Diet (Heart Healthy) Discharge Diet Recommended Diet: AHA Diet (Heart Healthy) Pending Studies Studies pending at discharge: no Medical Emergencies . Who to Call and When: Medical Emergencies: If at any time you feel your situation is an emergency, please call 911 immediately. . Non-Emergent Contact Non-Emergency issues call your: Primary Care Provider . Past History Medical & Surgical History: (1) Abnormal electrocardiogram [ECG] [EKG] (2) Palpitation (3) Chest pain . "Provider Documentation" section prepared by Sincere Smith. . VTE Core Measure Inpt VTE Proph given/why not?: Unfractionated heparin SQ (IV)
--- NOTE | 2017-10-02 16:17 | Discharge Summary ---
Discharge Summary Date of Service Oct 02, 2017. Discharge Summary Admission Date: Sep 30, 2017 at 08:27 Discharge Date: Oct 02, 2017 Discharge Disposition: Home Principal Diagnosis: Chest pain,EKG changes-No ACS and Negative Stress ECHO Secondary Diagnoses/Problems: Please see H&P and Hospital Progress note Consultations: Cardiology Medication Reconciliation New Medications: Aspirin (Aspirin EC Low Dose) 81 Mg Ectab 81 MG PO QAM for 30 Days, #30 Continued Medications: Levothyroxine Sodium (Synthroid) 50 Mcg Tab 50 MCG PO DAILY, TAB Admission Information HPI (per Admitting provider): DATE OF ADMISSION: 09/30/2017 PRIMARY CARE PHYSICIAN: Meghan CHIEF COMPLAINT: Palpitation with a lower central chest discomfort since around 2:00 a.m. HISTORY OF PRESENT COMPLAINT: She is a 67-year-old female with significant past medical history including lupus erythematosus, Sjogren's disease, sicca syndrome, acquired hypothyroidism, apparently has been complaining of lower central chest discomfort associated with palpitation and tachycardia since 2:00 a.m. this morning. She is a 67-year-old female quite active who does regular exercise including Power training, swimming, biking, and walking and has been seen in [place] about 2 weeks ago. She came back from [place] about 1-1/2 weeks back and started to workout accordingly. While she was in [place], she was not doing anything much, almost resting and doing some official work and was in a lot of stress. She started to workout as usual of her routine and then in the evening, she was noted to have some pounding in her neck and she was thinking that her heart rate was getting high. She checked her pulse, it was 75. Her usual pulse rate is 60 according to her. She went to sleep at 8:39 and then at 2:00 a.m., she woke up with more palpitation, heart rate of 75, but no other symptoms. At 4:00 a.m., she again woke up with palpitation and some neck pounding and at that time, she did have some lower central chest discomfort with questionable nausea, but no other associated symptoms with it. No dizziness, no vomiting. No numbness or tingling in the left upper extremity, jaw or in the neck area. With this kind of symptoms, she came to the Emergency Room. At ER, she was free from pain and her apparent blood test came out to be unremarkable, but her EKG did show a new T inversion including II, III, aVF and V3 to V6, which were not there in August. So, from that point, she was advised for admission to the hospital. PAST MEDICAL HISTORY: Significant for lupus erythematosus, diffuse connected tissue disease, Sjogren's disease, sicca syndrome, chronic rhinitis, acquired hypothyroidism. PAST SURGICAL HISTORY: Significant for minor dental surgery, knee arthroscopy on the left, ligation of the oviduct, tonsillectomy as a child, total hysterectomy for fibroid. FAMILY HISTORY: No history of diabetes, hypertension, or ischemic heart disease in the family. SOCIAL HISTORY: She is single. She has 1 child. She does not smoke. She does not drink and she is quite active. ALLERGIES: CIPROFLOXACIN, meperidine, and quinolones. MEDICATIONS: The only medication she has been taking is Synthroid 75 mcg daily. She also takes multivitamins and calcium tablet as needed. REVIEW OF SYSTEMS: Other systems reviewed, unremarkable except those mentioned in history of present complaint. PHYSICAL EXAMINATION: GENERAL: On examination in the Emergency Room, she was not having any distress. HEENT: Unremarkable. NECK: Supple. VITAL SIGNS: Temperature 36.4, pulse 72, respiration rate initially 19, and blood pressure 125/75, saturation 96% on room air. HEENT: Unremarkable. NECK: Supple. No JVD, no bruit. CHEST: Clear to auscultate bilaterally. HEART: S1, S2 regular. ABDOMEN: Soft, benign, nontender, no organomegaly. Bowel sounds present. EXTREMITIES: Negative for any edema. MUSCULOSKELETAL: Did not show any acute arthritis involving any joint. CENTRAL NERVOUS SYSTEM: She was alert, awake, and oriented x3. No focal sensory and/or motor deficit appreciated. GENITAL: Did not reveal any rash and/or enlargement of lymph nodes. LABORATORY AND DIAGNOSTIC DATA: Labs noted today, white count was 4.95, H&H 15.1/44.3, platelet was 249. Sodium 137, potassium 3.7, chloride 105, carbon dioxide 25, BUN 24, creatinine 0.83. Random glucose 92. LFTs normal. CK-MB 4.2. Troponin was less than 0.015. TSH 3.540. Chest x-ray reported as no active disease in the chest. EKG was in sinus rhythm, rate of 71, normal axis, new T-wave inversion involving II, III, aVF and V4 to V6, which were not there in EKG of August. IMPRESSION AND PLAN: 1. Chest pain with EKG changes. The patient will be admitted to telemetry unit. Given the chest discomfort and EKG changes, we will start her on heparin. The pros and cons of heparin use discussed with the patient. She received 4 Baby aspirin. We will continue with aspirin. We will get a cardiology evaluation for further management for chest pain and EKG changes. We will do serial cardiac enzymes while in the hospital and an echocardiogram. 2. History of Sjogren's syndrome and also lupus erythematosus. She does not have any symptoms from the disease. She seems to be quite inactive and does not take any medications for that. She does not have any arthritic changes or any rash in the skin. 3. Hypothyroidism. Continue with replacement. 4. Gastrointestinal prophylaxis with Protonix. 5. Deep venous thrombosis prophylaxis with heparin IV. 6. Code status: She will be a full code. In my clinical assessment, the beneficiary meets criteria as per CMS for 2 midnights' stay in the hospital. Hospital Course Chest pain with EKG changes. Has been on Aspirin and Heparin No ACS but EKG changes are not any better Appreciate cardiology input No more symptoms and no arrhythmia in Monitor S/P Negative Stress ECHO Wants to go home Advised to take things easy for a week History of Sjogren's syndrome and also lupus erythematosus. No acute symptoms from that Not been taking any medications Hypothyroidism. Continue with replacement. Gastrointestinal prophylaxis with Protonix. Deep venous thrombosis prophylaxis with heparin IV. Code status: She will be a full code. DISPOSITION Likely home in an day or two Total time spent on discharge = 35 minutes This includes examination of the patient, discharge planning, medication reconciliation, and communication with other providers. Discharge Instructions Date of Service Oct 02, 2017. Admission Reason for Admission: Abnormal Electrocardiogram, Chest Pain Discharge Discharge Diagnosis / Problem: Chest pain,EKG changes-No ACS and Negative Stress ECHO Discharge Goals Goal(s): Prevent Disease Progression Activity Recommendations Activity Limitations: resume your previous activity . Instructions / Follow-Up Instructions / Follow-Up Dr Christianson on 10/04/17 at 12:25 PM Current Hospital Diet Patient's current hospital diet: AHA Diet (Heart Healthy) Discharge Diet Recommended Diet: AHA Diet (Heart Healthy) Pending Studies Studies pending at discharge: no Medical Emergencies . Who to Call and When: Medical Emergencies: If at any time you feel your situation is an emergency, please call 911 immediately. . Non-Emergent Contact Non-Emergency issues call your: Primary Care Provider . Past History Medical & Surgical History: (1) Abnormal electrocardiogram [ECG] [EKG] (2) Palpitation (3) Chest pain . "Provider Documentation" section prepared by Sincere Smith. . VTE Core Measure Inpt VTE Proph given/why not?: Unfractionated heparin SQ (IV) <Electronically signed by Sincere Smith M.D.> Signed: 10/02/17 1216 Additional Copies To Praveen Nice M.D.
--- NOTE | 2017-10-04 17:27 | EDITING REQUIRED CODING QUERY ---
CHEST PAIN To promote full compliance with coding requirements relating to patient care physician participation is requested in all cases of occupational therapy aides teacher uncertainty. Please assist us with the question(s) below: Please list a more specific chest pain diagnosis or cause of chest pain if known by placing an X within the parenthesis (x): () Atypical Chest Pain ( ) Chest Wall Pain ( ) Midsternal Chest Pain ( ) Musculoskeletal Chest Pain ( ) Pleuritic Chest Pain ( ) Substernal Chest Pain ( ) Costochondral Chest Pain (+) Other (please Specify) ( ) Unable to Determine No pain complained but may be some tightness and or strange feeling. Thank you DAVIS Shelton CCS
== END 2017-10-02 12:15 | disposition home or self-care (01) | DRG 313 ==
LOC: EDBD 04:47 → C.EDB 04:48 → C.2T 08:27 → ENRESERV 13:40 → C.MED 20:45
PROVIDERS: ADMIT Internal Medicine; ATTEND Internal Medicine
DX: R07.89 Other chest pain (principal); Z88.1 Allergy status to other antibiotic agents; Z88.8 Allergy status to other drugs, medicaments and biological substances; L93.2 Other local lupus erythematosus; M35.00 Sjogren syndrome, unspecified; E03.9 Hypothyroidism, unspecified; R94.31 Abnormal electrocardiogram [ECG] [EKG]

== ENCOUNTER 2017-10-25 16:47 | Emergency (ER) | payer OTHER ==
[~2017-10-25] VITALS: Ht 160 cm; Wt 71.0 kg
[~2017-10-25 16:47] MED LIST changes: +ASPEC81 PO; -DOXY-300 PO; +LEVO50TA PO
[2017-10-25 16:48] VITALS: TEMP 36.5; Ht 160 cm; Wt 71.0 kg
[2017-10-25] MEDS ORDERED: SODIUM CHLORIDE 0.9% 1000ML 1,000 ML IV STA (17:05)
[2017-10-25 17:11] LABS: BASO % 0.6 %; BASO ABS # 0.04 K/uL (0-0.2); EOS % 2.3 %; EOS ABS # 0.14 K/uL (0-0.5); HEMATOCRIT 41.6 % (37-47); HEMOGLOBIN 14.3 g/dL (12.0-16.0); LYMPH % 31.6 %; LYMPH ABS # 1.96 K/uL (1.2-3.4); MEAN CELL VOLUME 91.6 fL (80-100); MEAN CORPUSCULAR HEMOGLOBIN 31.5 pg (25-34); MEAN CORPUSCULAR HGB CONC 34.4 g/dl (32-36); MEAN PLATELET VOLUME 10.9 fL (7.4-10.4); MONO % 6.9 %; MONO ABS # 0.43 K/uL (0.11-0.59); NEUT % 58.6 %; NEUT ABS # 3.63 K/uL (1.4-6.5); PLATELET COUNT 244 K/uL (130-400); RED CELL DISTRIBUTION WIDTH SD 43.7 fL (36.4-46.3)
--- NOTE | 2017-10-25 17:22 | DIAGNOSTIC IMAGING REPORT ---
CHEST ONE VIEW PORTABLE CLINICAL HISTORY: 67 years-old Female presenting with Chest Pain. TECHNIQUE: Portable upright AP view of the chest was obtained. COMPARISON: 09/30/2017. FINDINGS: Cardiomediastinal silhouette normal. Lungs and pleural spaces clear. Degenerative changes of the thoracic spine. Cholecystectomy clips noted. IMPRESSION: 1. No acute cardiopulmonary disease. Electronically signed by: Praveen Arteaga M.D. 10/25/2017 5:20 PM Dictated Date/Time: 10/25/2017 5:20 PM
[2017-10-25 17:50] LABS: ALBUMIN 3.8 gm/dl (3.4-5.0); ALKALINE PHOSPHATASE 80 U/L (45-117); ALT/SGPT 27 U/L (12-78); BLOOD UREA NITROGEN 26 mg/dl (7-18); CALCIUM 9.5 mg/dl (8.5-10.1); CARBON DIOXIDE 28 mmol/L (21-32); CKMB 2.8 ng/ml (0.5-3.6); CREATININE 0.87 mg/dl (0.60-1.20); GLUCOSE 102 mg/dl (70-99); LIPASE 186 U/L (73-393); TOTAL PROTEIN 8.7 gm/dl (6.4-8.2)
[2017-10-25 17:58] LABS: SODIUM 134 mmol/L (136-145)
[2017-10-25 18:06] LABS: AST/SGOT 23 U/L (15-37)
--- NOTE | 2017-10-25 18:49 | EMERGENCY ROOM VISIT NOTE ---
History Report prepared by Maria Teresa: Nelida Dang Under the Supervision of: Dr. Jaylen Bradshaw D.O. First contact with patient: 16:50 Chief Complaint: RAPID HEART RATE Stated Complaint: RAPID PULSE Nursing Triage Summary: pt to the ED with c/o rapid heart rate that started 2 hrs ago and was told to come here by dr mathews History of Present Illness The patient is a 67 year old female who presents to the Emergency Room with complaints of resolved rapid heart rate starting around 1.5 hours ago. The patient was sent to the ED by cardiology. The patient was admitted to the hospital 1 month ago with T wave inversions. She had a normal stress test and echo. She had an event monitor as an outpatient which found SVT. Today, the patient was reading when she started feeling her heart racing. She notes that she had had some tea and steak salad at lunch today. She feels the palpitations in her neck. The palpitations lasted for about an hour. She has been getting these episodes 5 times a week for the past month. She notes that she was started on metoprolol last week, but she has not been taking the full dose as directed. She has some upper abdominal burning with the heart racing. She denies any chest pain, SOB, nausea, vomiting, diarrhea, urinary symptoms, fever , ear pain, or cough. Her last bowel movement was 3 weeks ago and normal. She notes that she has been getting sinus headaches and green rhinorrhea over the past week and thinks that she might have a sinus infection. She did travel to [place] recently. Patient denies diabetes, hypertension, hyperlipidemia, CAD, and smoking. Patient denies swelling of calves, history of immobilization or recent surgery, prior history of DVT, hemoptysis. Source of History: patient Onset: 1.5 hours ago Position: other (heart) Quality: other (rapid heart rate) Timing: resolved Associated Symptoms: + headache, + abdominal pain, No fevers, No cough, No chest pain, No SOB, No nausea, No vomiting, No diarrhea, No urinary symptoms Review of Systems See HPI for pertinent positives & negatives. A total of 10 systems reviewed and were otherwise negative. Past Medical & Surgical Medical Problems: (1) Abnormal electrocardiogram [ECG] [EKG] (2) Chest pain (3) Skin problem Family History Patient reports no known family medical history. Social History Smoking Status: Never Smoker Drug Use: none Marital Status: single Housing Status: lives alone Occupation Status: retired Current/Historical Medications Scheduled Levothyroxine Sodium (Synthroid), 50 MCG PO DAILY Allergies Coded Allergies: Ciprofloxacin (Verified Allergy, Unknown, GI SYMPTOMS, 10/25/17) Quinolones (Unverified Allergy, Unknown, GI SYMPTOMS, 10/25/17) Meperidine (Unverified Adverse Reaction, Mild, NAUSEA, 10/25/17) Physical Exam Vital Signs Date Time Temp Pulse Resp B/P (MAP) Pulse Ox O2 Delivery O2 Flow Rate FiO2 10/25/17 20:52 80 144/85 98 10/25/17 20:39 81 10/25/17 18:51 79 129/74 96 Room Air 10/25/17 16:48 36.5 94 18 173/105 97 Room Air Physical Exam GENERAL: Sitting up in bed, alert, well appearing, well nourished, no distress, non-toxic HEAD: No tenderness over the frontal or maxillary sinus. EYE EXAM: normal conjunctiva. PERRL and EOM's grossly intact. OROPHARYNX: no exudate, no erythema, lips, buccal mucosa, and tongue normal and mucous membranes are moist NECK: supple, no nuchal rigidity, no adenopathy, non-tender LUNGS: Clear to auscultation. Normal chest wall mechanics HEART: no murmurs, S1 normal and S2 normal ABDOMEN: abdomen soft, non-tender, normo-active bowel sounds, no masses, no rebound or guarding. BACK: Back is symmetrical on inspection and there is no deformity, no midline tenderness, no CVA tenderness. SKIN: no rashes and no bruising UPPER EXTREMITIES: upper extremities are grossly normal. LOWER EXTREMITIES: No pitting edema. Calves equal bilaterally. NEURO EXAM: Normal sensorium, cranial nerves II-XII grossly intact, normal speech, no gross weakness of arms, no gross weakness of legs. Medical Decision & Procedures ER Provider Diagnostic Interpretation: Radiology results as stated below per my review and the radiologist's interpretation: CHEST ONE VIEW PORTABLE CLINICAL HISTORY: 67 years-old Female presenting with Chest Pain. TECHNIQUE: Portable upright AP view of the chest was obtained. COMPARISON: 09/30/2017. FINDINGS: Cardiomediastinal silhouette normal. Lungs and pleural spaces clear. Degenerative changes of the thoracic spine. Cholecystectomy clips noted. IMPRESSION: 1. No acute cardiopulmonary disease. Electronically signed by: Praveen Arteaga M.D. 10/25/2017 5:20 PM Dictated Date/Time: 10/25/2017 5:20 PM Laboratory Results 10/25/17 17:00 Red Blood Count 4.54, Mean Corpuscular Volume 91.6, Mean Corpuscular Hemoglobin 31.5, Mean Corpuscular Hemoglobin Concent 34.4, Mean Platelet Volume 10.9, Neutrophils (%) (Auto) 58.6, Lymphocytes (%) (Auto) 31.6, Monocytes (%) (Auto) 6.9, Eosinophils (%) (Auto) 2.3, Basophils (%) (Auto) 0.6, Neutrophils # (Auto) 3.63, Lymphocytes # (Auto) 1.96, Monocytes # (Auto) 0.43, Eosinophils # (Auto) 0.14, Basophils # (Auto) 0.04 10/25/17 17:00 Test 10/25/17 17:00 10/25/17 19:15 White Blood Count 6.20 K/uL (4.8-10.8) Red Blood Count 4.54 M/uL (4.2-5.4) Hemoglobin 14.3 g/dL (12.0-16.0) Hematocrit 41.6 % (37-47) Mean Corpuscular Volume 91.6 fL (80-100) Mean Corpuscular Hemoglobin 31.5 pg (25-34) Mean Corpuscular Hemoglobin Concent 34.4 g/dl (32-36) Platelet Count 244 K/uL (130-400) Mean Platelet Volume 10.9 fL (7.4-10.4) Neutrophils (%) (Auto) 58.6 % Lymphocytes (%) (Auto) 31.6 % Monocytes (%) (Auto) 6.9 % Eosinophils (%) (Auto) 2.3 % Basophils (%) (Auto) 0.6 % Neutrophils # (Auto) 3.63 K/uL (1.4-6.5) Lymphocytes # (Auto) 1.96 K/uL (1.2-3.4) Monocytes # (Auto) 0.43 K/uL (0.11-0.59) Eosinophils # (Auto) 0.14 K/uL (0-0.5) Basophils # (Auto) 0.04 K/uL (0-0.2) RDW Standard Deviation 43.7 fL (36.4-46.3) RDW Coefficient of Variation 13.0 % (11.5-14.5) Immature Granulocyte % (Auto) 0.0 % Immature Granulocyte # (Auto) 0.00 K/uL (0.00-0.02) D-Dimer 210 ug/L FEU (0-500) Anion Gap 6.0 mmol/L (3-11) Est Creatinine Clear Calc Drug Dose 57.6 ml/min Estimated GFR () 78.8 Estimated GFR (Non- 68.0 BUN/Creatinine Ratio 30.0 (10-20) Calcium Level 9.5 mg/dl (8.5-10.1) Total Bilirubin 0.2 mg/dl (0.2-1) Direct Bilirubin < 0.1 mg/dl (0-0.2) Aspartate Amino Transf (AST/SGOT) 23 U/L (15-37) Alanine Aminotransferase (ALT/SGPT) 27 U/L (12-78) Alkaline Phosphatase 80 U/L (45-117) Total Creatine Kinase 92 U/L (26-192) Creatine Kinase MB 2.8 ng/ml (0.5-3.6) Creatine Kinase MB Ratio 3.0 (0-3.0) Total Protein 8.7 gm/dl (6.4-8.2) Albumin 3.8 gm/dl (3.4-5.0) Lipase 186 U/L (73-393) Thyroid Stimulating Hormone (TSH) 1.690 uIu/ml (0.300-4.500) Troponin I < 0.015 ng/ml (0-0.045) Laboratory results per my review. Medications Administered Medications (Trade) Dose Ordered Sig/Joan Route Start Time Stop Time Status Last Admin Dose Admin Sodium Chloride 1,000 ml @ 999 mls/hr Q1H1M STAT IV 10/25/17 17:05 10/25/17 18:05 DC 10/25/17 17:05 999 MLS/HR ECG Per My Interpretation Indication: palpitations Rate (beats per minute): 90 Rhythm: sinus rhythm Findings: nonspecific-ST abn (Lateral), T-wave inversion (Inferior), other ( normal axis, low voltage) Comparison ECG Date: 02-Oct-2017 Change: no significant change ED Course ED COURSE: Vital signs were reviewed and showed hypertension. The patients medical record was reviewed The above diagnostic studies were performed and reviewed. ED treatments and interventions as stated above. 1653: The patient was evaluated in room C4. A complete history and physical examination was performed. 1704: Sodium Chloride 1000 ml @ 999 mls/hr IV. 1824: I reevaluated the patient. I updated her on the results and answered all her questions. She will have repeat blood work. 1950: I reevaluated the patient. I updated her on the results. 2032: I discussed the patient's case with Dr. Ramirez, [facility]. He recommends follow up with Dr. Mathews tomorrow. 2041: Upon reevaluation, the patient is resting comfortably. I discussed my findings with the patient and she understands and agrees with the treatment plan. Based on the patients age, coexisting illnesses, exam and lab findings the decision to treat as an outpatient was made. The patient remained stable while under my care. The patient appeared well at the time of discharge. Medical Decision Differential diagnoses includes but is not limited to acute coronary syndrome, myocardial infarction, pericarditis, pulmonary embolus, aortic dissection, pneumonia, pneumothorax, musculoskeletal, shingles, esophageal. Patient is a 67-year-old female who presents the ER for palpitations. She notes that she felt her heart racing about an hour and half prior to arrival. She was just recently admitted and discharged for palpitations. She had a negative stress echo. EKG today is unchanged from previous. While she was following up with a PCP she was diagnosed with SVT on loop recorder. CBC along with BMP, LFTs, bilirubin, troponin and TSH were normal. D-dimer was negative. Chest x-ray was unremarkable. Troponin was repeated at 2 hours and was negative. Patient is currently not taking her metoprolol. I recommend following back up with her escort vehicle driver and PCP as she does have a prescription for Cardizem to try. Discussed with Dr. Currie who recommended having the patient follow-up with her escort vehicle driver tomorrow. Discussed with Pt concerning signs and symptoms to watch out for. Pt was instructed to follow up with their PCP and discussed with the patient their option to return to the ED at anytime for persistent or worsening symptoms. The appropriate anticipatory guidance and out-patient management, including indications for return to the emergency department, were explained at length to the patient and understood. Medication Reconcilliation Current Medication List: was personally reviewed by me Blood Pressure Screening Patient's blood pressure: Elevated blood pressure Blood pressure disposition: Elevated BP felt to be situational Consults Time Called: 1951 Consulting Physician: Dr. Ramirez [facility] Card[facility] Returned Call: [phone] I discussed the patient's case with him. He recommends follow up with Dr. Mathews tomorrow. Impression Primary Impression: Palpitations Scribe Attestation The scribe's documentation has been prepared under my direction and personally reviewed by me in its entirety. I confirm that the note above accurately reflects all work, treatment, procedures, and medical decision making performed by me. Departure Information Dispostion Home / Self-Care Referrals Praveen Nice M.D. (PCP) Forms HOME CARE DOCUMENTATION FORM, IMPORTANT VISIT INFORMATION, WORK / SCHOOL INSTRUCTIONS Patient Instructions ED Palpitations, [facility] Additional Instructions Please follow up with your primary care doctor with in the next 24 hours. Any worsening of your symptoms, please return to the ED immediately. This includes any fevers greater than 100.4, worsening pain, chest pain, passing out, shortness breath, persistent nausea, vomiting, unable to eat or drink, or any other concerning signs or symptoms from your standpoint. Please follow-up with your escort vehicle driver as an outpatient as previously discussed.
[2017-10-25 20:52] VITALS: BP 144/85; PULSE 80; O2SAT 98
== END 2017-10-25 20:53 | disposition home or self-care (01) ==
LOC: C.EDB 16:48 → C.EDC 20:53
DX: R00.2 Palpitations (principal); R51 Headache; R10.9 Unspecified abdominal pain; K21.9 Gastro-esophageal reflux disease without esophagitis; Z79.899 Other long term (current) drug therapy; Z88.1 Allergy status to other antibiotic agents; Z88.8 Allergy status to other drugs, medicaments and biological substances

== ENCOUNTER 2024-11-23 06:41 | Observation (INO) ==
--- NOTE | 2024-11-02 10:51 | PAT Medication Instructions ---
Medication Instructions Date of Service November 02, 2024 Home Medications cholecalciferol (vitamin D3) 50 mcg (2,000 unit) capsule 2,000 unit PO DAILY clobetasol 0.05 % topical cream 1 applic topical BID PRN Skin Irritation estradiol 0.01% (0.1 mg/gram) vaginal cream 1 % vaginal UD fluticasone propionate 50 mcg/actuation nasal spray,suspension 2 spray intranasal DAILY PRN Nasal Congestion tretinoin 0.1 % topical cream 1 applic topical HS PRN breakouts sodium chloride 0.65 % nasal spray aerosol (Saline Mist) 1 spray intranasal BID PRN Nasal Congestion lutein 1 tab PO QAM multivitamin 1 tab PO QAM levothyroxine 75 mcg tablet (Synthroid) 75 mcg PO QAM Neuromag 1 cap PO QAM ibuprofen 200 mg tablet (Advil) 200 mg PO Q6H PRN Pain lactobacillus combination no.4 3 billion cell capsule (Probiotic) 3,000 mmu cells PO DAILY lorazepam 0.5 mg tablet 0.5 mg PO UD PRN anxiety omega-3 fatty acids 1 cap PO BID ASK your surgeon for instructions ibuprofen 200 mg tablet (Advil) 200 mg PO Q6H PRN Pain STOP taking 2 weeks before surgery (or as soon as possible if surgery is within 2 weeks) lutein 1 tab PO QAM Neuromag 1 cap PO QAM omega-3 fatty acids 1 cap PO BID STOP taking 24 hours before surgery clobetasol 0.05 % topical cream 1 applic topical BID PRN Skin Irritation estradiol 0.01% (0.1 mg/gram) vaginal cream 1 % vaginal UD tretinoin 0.1 % topical cream 1 applic topical HS PRN breakouts DO NOT take the morning of surgery cholecalciferol (vitamin D3) 50 mcg (2,000 unit) capsule 2,000 unit PO DAILY multivitamin 1 tab PO QAM lactobacillus combination no.4 3 billion cell capsule (Probiotic) 3,000 mmu cells PO DAILY Take morning of surgery With a small sip of water, OTHERWISE NOTHING TO EAT OR DRINK AFTER MIDNIGHT: fluticasone propionate 50 mcg/actuation nasal spray,suspension 2 spray intranasal DAILY PRN Nasal Congestion (if needed) sodium chloride 0.65 % nasal spray aerosol (Saline Mist) 1 spray intranasal BID PRN Nasal Congestion (if needed) levothyroxine 75 mcg tablet (Synthroid) 75 mcg PO QAM lorazepam 0.5 mg tablet 0.5 mg PO UD PRN anxiety (if needed) Take evening before surgery fluticasone propionate 50 mcg/actuation nasal spray,suspension 2 spray intranasal DAILY PRN Nasal Congestion (if needed) sodium chloride 0.65 % nasal spray aerosol (Saline Mist) 1 spray intranasal BID PRN Nasal Congestion (if needed) lorazepam 0.5 mg tablet 0.5 mg PO UD PRN anxiety (if needed) Other Notes If you have any questions please call us at [phone] or [phone] or [phone] or [phone]
--- NOTE | 2024-11-08 13:56 | Anesthesiology Consultation ---
Date of Service November 08, 2024 Assessment & Plan (1) Encounter for pre-operative examination: - Infectious disease screening: Per assessment on 11/08/24- No known recent infectious disease contacts or current infectious disease symptoms. - Outpatient joint assessment: Pt currently scheduled for inpatient pathway. If surgeon requests review for outpatient joint pathway, patient is an acceptable candidate for outpatient joint program from anesthesia standpoint pending surgeon's office assessment that patient is motivated, has good support and completes Same Day Joint Program preop requirements. Chart Review Chart Review: Acceptable Risk for Surgery and Patient seen in Pre Admission Testing Teaching & Discussion Pre-Anesthesia Teaching/Discussion Notes: Instructed NPO after midnight before surgery,except medications with 15 cc of water. Medication instructions provided according to the PAT guidelines. History Surgery Operation Date: 07/23/24 08:00 Proposed Procedures p Left Total Knee Arthroplasty - Rambo Gauthier DO Operation Date: 11/23/24 09:00 Proposed Procedures p Left Total Knee Arthroplasty - Rambo Gauthier DO Height/Weight Height: 5 ft 3 in Weight: 64.2 kg Allergies Allergy/AdvReac Type Severity Reaction Status Date / Time Iodinated Contrast Media Allergy Hives Verified 10/26/24 07:59 meperidine AdvReac Mild Nausea Verified 11/08/24 15:45 ciprofloxacin AdvReac Unknown GI symptoms Verified 11/08/24 15:45 Quinolones AdvReac Unknown GI symptoms Verified 11/08/24 15:45 Medications Home Medications Medication Instructions Recorded Confirmed Last Taken cholecalciferol (vitamin D3) 50 2,000 unit PO DAILY 12/03/19 10/26/24 05/01/23 mcg (2,000 unit) capsule clobetasol 0.05 % topical cream 1 applic topical BID PRN Skin 12/03/19 10/26/24 05/01/23 Irritation estradiol 0.01% (0.1 mg/gram) 1 % vaginal UD 12/03/19 10/26/24 05/01/23 vaginal cream fluticasone propionate 50 2 spray intranasal DAILY PRN Nasal 12/03/19 10/26/24 Unknown mcg/actuation nasal Congestion spray,suspension tretinoin 0.1 % topical cream 1 applic topical HS PRN breakouts 12/03/19 10/26/24 Unknown sodium chloride 0.65 % nasal spray 1 spray intranasal BID PRN Nasal 12/30/19 10/26/24 Unknown aerosol (Saline Mist) Congestion lutein 1 tab PO QAM 01/03/20 10/26/24 05/15/23 multivitamin 1 tab PO QAM 01/03/20 10/26/24 05/15/23 levothyroxine 75 mcg tablet 75 mcg PO QAM 04/21/23 10/26/24 05/16/23 05:00 (Synthroid) Neuromag 1 cap PO QAM 10/26/24 10/26/24 Unknown ibuprofen 200 mg tablet (Advil) 200 mg PO Q6H PRN Pain 10/26/24 10/26/24 Unknown lactobacillus combination no.4 3 3,000 mmu cells PO DAILY 10/26/24 10/26/24 Unknown billion cell capsule (Probiotic) lorazepam 0.5 mg tablet 0.5 mg PO UD PRN anxiety 10/26/24 10/26/24 Unknown omega-3 fatty acids 1 cap PO BID 10/26/24 10/26/24 Unknown magnesium glycinate 1 tab PO DAILY 11/08/24 11/08/24 Unknown Past Medical History Medical History Bilateral tinnitus Hx History of anxiety Hx of seasonal allergies Hypothyroidism PVCs (premature ventricular contractions) Hx, occasional Sjogrens syndrome Dry eyes Exercise / Class Metabolic Activity II 4-5 Yardwork/Stairs/Walk up hill (one FS: No CP, no SOB) Past Family History Family History Other Allergies Asthma Cancer Family history non-contributory No family history of adverse response to anesthesia No family history of bleeding disorder Past Surgical History Surgical History Family history of anesthesia complication Son- Age 20s; reaction to fentanyl on OR table during tonsillectomy, went into respiratory arrest (survived) History of cholecystectomy History of esophagogastroduodenoscopy (EGD) History of tonsillectomy Hx of abdominal surgery ileo-ureter replacement Hx of arthroscopy of right knee Hx of cataract extraction R/L Hx of colonoscopy Hx of myomectomy Hx of total hysterectomy with removal of both tubes and ovaries Hx of tubal ligation Nausea and vomiting after administration of anesthetic agent Past Anesthesia History No Hx of Anesthesia Complications Son- Age 20s; reaction to fentanyl on OR table during tonsillectomy, went into respiratory arrest (survived) History of PONV No Hx of PONV, History of PONV and Hx of Motion Sickness (Car) Social History Smoking Status: Never smoker Do You Dip or Chew Tobacco: No Hx Alcohol Use: Yes alcohol intake frequency: holidays/special occasions only substance use type: does not use and marijuana (remote hx occasional) Review of Systems Occasional palpitations. Patient denies chest pain, shortness of breath, dyspnea on exertion, fever, chills, cough, wheezing. Physical Exam Vital Signs BP 121/78 P 79 TEMP 97.8 SP02 98%RA RESP 18 Physical Full cervical extension range of motion. Full TMJ range of motion. TMD 3 finger breaths Mallampati Score III Dentition: intact, + several crowns Lungs: clear throughout to auscultation Cardiac: regular rate and rhythm, no murmurs noted Spine: normal Carotid arteries: negative bruit Extremities: no LE edema Lab Results Anesthesia Preop Results Results Anesthesia Widget: WBC 5.36 K/ul (4.8-10.8) 10/11/24 Hgb 14.0 g/dl (12.0-16.0) 10/11/24 Hct 42.8 % (37.0-47.0) 10/11/24 Plt 254 K/uL (130-400) 10/11/24 Na 135 mmol/L (136-145) L 10/11/24 K 3.9 mmol/L (3.5-5.1) 10/11/24 Cl 101 mmol/L (98-107) 10/11/24 CO2 29 mmol/L (21-32) 10/11/24 BUN 27 mg/dl (6-23) H 10/11/24 Creat 0.82 mg/dl (0.6-1.2) 10/11/24 Glucose Level 88 mg/dl (70-99(Fasting)) 10/11/24 PT 10.9 Seconds (9.0-12.0) 11/08/24 PTT 28 Seconds (21-31) 11/08/24 INR 1.0 (0.9-1.1) 11/08/24 TSH 1.883 uIu/ml (0.300-4.500) 10/11/24 Urine Color Yellow 10/11/24 Urine Appearance Clear (Clear) 10/11/24 Urine pH 6.5 (4.5-7.5) 10/11/24 Urine Specific [place] 1.009 (1.000-1.030) 10/11/24 Urine Protein Negative (Negative) 10/11/24 Urine Glucose (UA) Negative (Negative) 10/11/24 Urine Ketones Negative (Negative) 10/11/24 Urine Blood Negative (Negative) 10/11/24 Urine Nitrite Negative (Negative) 10/11/24 Urine Bilirubin Negative (Negative) 10/11/24 Urine Urobilinogen Negative (Negative) 10/11/24 Urine Leukocyte Esterase Negative (Negative) 10/11/24 COVID-19 PCR NEGATIVE (Negative) 10/11/24 Blood Type O Positive 11/08/24 Antibody Screen NEGATIVE 11/08/24 Testing Electrocardiogram Date: 11/08/24 NSR at 79bpm. NS TWA. No significant change compared to 04/11/2023 per rest room matron comparison. Chest X-Ray Date: 11/08/24 FINDINGS: Heart size and pulmonary vasculature are normal. Stable hyperexpanded lungs. No effusion or consolidation. IMPRESSION: No acute findings. Echocardiogram Date: 09/27/23 LVEF 63%. LV wall motion is normal. Grade 1 diastolic dysfunction. Mild AV sclerosis. Mild MR. Stress Test Date: 02/20/20 Type: exercise Stress EKG response showed no evidence of ischemia. 10 minutes. 92% MPHR.LV ejection fraction increases normally with stress. The LV end-systolic cavity size reduces post-rest (normal response). EF 55 to 60%. Grade 1 diastolic dysfunction. No significant valvular disease.
[~2024-11-23 06:41] MED LIST changes: -ASPEC81 PO; +BUPIVACAINE 0.25% PF 30 ML VIAL ONE; +BUPIVACAINE 0.5 % 5 MG/1 ML PF 10ML VIAL ONE; +DEXAMETHASONE SOD INJ 4 MG/ML VIAL ONE; +EPINEPHrine INJ 1 MG/ML AMP ONE; -LEVO50TA PO
--- NOTE | 2024-11-23 06:42 | History & Physical Bridge Note ---
Date of Service November 23, 2024 History & Physical Bridge Note I have examined the patient, reviewed the History & Physical and in the interval since the performance of the History & Physical I have noted the following changes of clinical significance: no changes noted
[2024-11-23] MEDS: ACETAMINOPHEN 500 MG TAB PO SCH ×2 (07:03→14:22)
[2024-11-23] MEDS: FAMOTIDINE 20 MG TAB PO SCH (07:04)
[2024-11-23] MEDS: GABAPENTIN 300 MG CAP PO SCH (07:04)
[2024-11-23] MEDS: LR 60ML/HR IV SCH (07:04)
[2024-11-23] MEDS: LR 500ML BOLUS, THEN 15ML/HR IV SCH (07:04)
[2024-11-23] MEDS: dexAMETHasone**PF** 10 MG/ML VIAL IV SCH (07:07)
[2024-11-23] MEDS ORDERED: fentaNYL citrate PF 100 MCG/2 ML VIAL ONE (07:27)
[2024-11-23] MEDS ORDERED: MIDAZOLAM HCL 1 MG/ML 2ML VIAL ONE (07:27)
[2024-11-23] MEDS: TRANEXAMIC ACID 1,000 MG **IV Pre-op IV SCH (07:33)
[2024-11-23] MEDS: ceFAZolin 2000MG 2,000 MG/15 ML SYR IV SCH (07:45)
[2024-11-23] MEDS ORDERED: PROPOFOL IV EMULSION 10 MG/ML 20 ML VIAL IV ONE (07:50)
[2024-11-23] MEDS ORDERED: LIDOCAINE 2% 2 ML VIAL/AMP(20MG/ML) INFIL ONE (07:50)
[2024-11-23] MEDS ORDERED: PHENYLEPHRINE 100MCG/ML 10ML SYR IV ONE (08:06)
[2024-11-23] MEDS ORDERED: ONDANSETRON INJ 2 MG/ML 2 ML VIAL ONE (08:06)
[2024-11-23] MEDS ORDERED: ePHEDrine sulfate 50 MG/5 ML SYR ONE (08:15)
[2024-11-23] MEDS: ORTHO JOINT ANESTHETIC ONE (08:28)
[2024-11-23] MEDS: ROPIV 0.5% 246mg, Ketorolac 30mg, EPINEPHrine 0.5mg in NSS INFIL SCH (08:28)
[2024-11-23] MEDS: TRANEXAMIC ACID 1,000 MG **IV Intra-op IV SCH (08:52)
--- NOTE | 2024-11-23 09:02 | Operative Report ---
PG Post Operative Report Pre & Post Diagnosis Operation Date: 11/23/24 08:00 Pre-Op Diagnosis: Left Knee Degenerative Joint Disease Post-Op Diagnosis: Left Knee Degenerative Joint Disease I identified the patient and participated in the time-out.: Yes Procedure Operation Date: 11/23/24 08:00 Actual Procedures p Left Total Knee Arthroplasty(Left) - Rambo Gauthier DO Surgeon Rambo Gauthier DO Incident Response Engineer Yoshi Jorge PA-C Estimated Blood Loss 50 Findings Consistent with Post-Op Diagnosis Specimens Left femoral and tibial bone Description of Procedure Implants used: I used a Rama Persona total knee arthroplasty system with a size 9 narrow femur, D tibia, 31 oval patella, and a size 11 medial congruent polyethylene bearing. All components were cemented in place with Biomet cement. Lizet arrived [facility] for the above procedure. She was seen in the preoperative holding area and the operative extremity was identified and signed. She was given a preoperative antibiotic, TXA, a spinal anesthetic and an adductor nerve block. She was taken back to the operating room and laid on the table in supine position. She was given basic sedation. The operative knee was then prepped and draped in sterile fashion. A timeout was done, and the patient and the operative extremity was properly identified. A midline incision was made directly over the patella. Dissection was taken down to the extensor mechanism. A medial parapatellar arthrotomy was used. The medial retinaculum was released and the fat pad was mostly excised. The knee was flexed and the ACL, PCL, and meniscus were removed. A drill was sent down the center of the femoral canal followed by an intramedullary sharifa. Off that sharifa a distal femoral cutting block was placed. 9 mm was resected off the distal femur at 5 of valgus. A posterior referencing AP sizing guide was then placed on the distal femur. The femur measured to be a size 9. 2 drill holes were placed in 3 of external rotation. A 4-in-1 cutting block was then impacted into place. Anterior, posterior, and chamfer cuts were then made. The proximal tibia was then exposed. An external tibial alignment guide was placed. A tibial cut guide was then anchored in place and the proximal tibia was then resected. The posterior aspect of the knee was then opened up and any additional meniscus fragments and osteophytes were removed. The tibia measured to be a size D. The tibial plate was then placed in the appropriate rotation and the tibia was drilled and punched. Trial components were then placed. I used a size 11 medial congruent polyethylene insert. The knee was brought through a full range of motion and felt to be stable. The peg holes for the femoral component were then drilled. The patella was then everted and 9 mm was resected off the posterior aspect of the patella. The patella measured to be a size 31 oval. 3 peg holes were then drilled. A trial patella was placed. The knee was once again brought through a full range of motion and felt to be stable. Trial components were then removed. The surrounding soft tissues were injected with 100 cc of an orthopedic pain control cocktail. All components were then cemented into place with Biomet cement. The final polyethylene insert was then snapped into place. Once cement was dry the tourniquet was deflated. Hemostasis was obtained. A dilute betadyne lavage was then done for 3 minutes. The joint was then irrigated with normal saline solution. The medial parap atellar arthrotomy was then closed with #1 Vicryl suture. The skin was closed with 2-0 Vicryl, 3-0V lock suture, and nicole. A soft compressive dressing was placed. She was then transferred to a hospital bed and taken to the postanesthesia care unit in stable condition. She tolerated the procedure well. Yoshi Jorge PA-C, was present for the entire procedure. He was critical for patient positioning, prepping, draping, retraction exposure, wound closure and application of sterile dressing. I attest to the content of the Intraoperative Record and any orders documented therein. Any exceptions are noted below.
[2024-11-23] MEDS ORDERED: ATROPINE SULFATE 0.1 MG/ML 10ML SYR IV PRN (09:28)
[2024-11-23] MEDS ORDERED: fentaNYL citrate PF 100 MCG/2 ML VIAL IV PRN (09:28)
[2024-11-23] MEDS ORDERED: PROMETHAZINE HCL 6.25 MG in SODIUM CHLORIDE 0.9% 50 ML IV PRN (09:28)
[2024-11-23] MEDS ORDERED: ePHEDrine sulfate 50 MG/ML AMP IV PRN (09:28)
[2024-11-23] MEDS ORDERED: ONDANSETRON INJ 2 MG/ML 2 ML VIAL IV PRN ×2 (09:28→11:33)
--- NOTE | 2024-11-23 10:15 | XRay Report ---
XR knee LT 1 or 2V routine HISTORY: 74 years-old Female Surgical Post Op left knee arthroplasty COMPARISON: Radiographs 10/19/2023 TECHNIQUE: 2 views of the left knee FINDINGS: Total joint arthroplasty with patellar resurfacing. Anterior midline skin nicole with expected posto perative soft tissue swelling and deep tissue air. No acute fracture, dislocation or unexpected opaqu e foreign body. IMPRESSION: Total joint arthroplasty with expected postoperative changes. ACT 112: Negative or not required by law. The above report was generated using voice recognition software. It may contain grammatical, syntax o r spelling errors. Electronically signed by: Julio Cesar Vanessa M.D. 11/23/2024 10:13 AM
[2024-11-23] MEDS ORDERED: MAGNESIUM HYDROXIDE SUSP 30 ML UDC PO PRN (11:33)
[2024-11-23] MEDS ORDERED: METOCLOPRAMIDE HCL INJ 5 MG/ML 2 ML VIAL IV PRN (11:33)
[2024-11-23] MEDS ORDERED: bisacodyL 10 MG SUPP PR PRN (11:33)
[2024-11-23] MEDS ORDERED: NALOXONE HCL 0.4 MG/1 ML VIAL/CARP IV PRN (11:33)
[2024-11-23] MEDS ORDERED: HYDROmorphone INJ 0.5 MG/0.5 ML SYR IV PRN (11:33)
--- NOTE | 2024-11-23 14:01 | Anesthesiology Progress Note ---
Date of Service November 23, 2024 Anesthesia Post Procedure Vital Signs Vital Signs: Temp Pulse Pulse Resp BP Pulse Ox O2 Del Method 11/23/24 12:50 36.5 C 74 18 103/62 96 Room Air 11/23/24 12:00 78 13 111/63 97 Room Air 11/23/24 11:30 67 13 106/61 97 Room Air 11/23/24 11:15 67 13 113/64 94 Room Air 11/23/24 11:00 66 12 111/63 96 Room Air 11/23/24 10:45 72 20 109/64 96 Room Air 11/23/24 10:35 70 15 106/65 94 Room Air 11/23/24 10:25 70 13 103/58 L 97 Room Air 11/23/24 10:15 69 12 103/54 L 93 Room Air 11/23/24 10:05 69 12 106/57 L 92 Room Air 11/23/24 09:55 68 15 107/62 97 Room Air 11/23/24 09:45 36.4 C L 70 12 104/58 L 97 Room Air 11/23/24 09:35 68 18 103/60 100 Oxymask 11/23/24 09:25 68 12 105/59 L 100 Oxymask 11/23/24 09:16 36.8 C 72 15 98/52 L 100 Oxymask 11/23/24 06:51 36.6 C 77 18 135/81 96 Room Air O2 Flow Rate 11/23/24 12:50 11/23/24 12:00 11/23/24 11:30 11/23/24 11:15 11/23/24 11:00 11/23/24 10:45 11/23/24 10:35 11/23/24 10:25 11/23/24 10:15 11/23/24 10:05 11/23/24 09:55 11/23/24 09:45 11/23/24 09:35 2 11/23/24 09:25 11 11/23/24 09:16 11 11/23/24 06:51 Pain Intensity Left Knee: Pain Intensity: 8 Transfer of Care Handoff Completed per policy Notes Mental Status: alert / awake / arousable Patient Amnestic to Procedure: Yes Nausea / Vomiting: adequately controlled Pain: adequately controlled Airway Patency, RR, SpO2: stable & adequate BP & HR: stable & adequate Hydration State: stable & adequate Neuraxial Anesthesia: was administered and sensory block is resolving Anesthetic Complications: no major complications apparent and Pt Satisfied with anesthetic care
[2024-11-23] MEDS: KETOROLAC TROMETHAMINE 15 MG/ML VIAL IV SCH (14:23)
[2024-11-23] MEDS: ceFAZolin 1000MG 1,000 MG/7.5 ML SYR IV SCH (16:36)
[2024-11-23] MEDS ORDERED: Nursing to Pharmacy Communication SCH (16:45)
[2024-11-23] MEDS: SENNA 8.6 MG TAB PO SCH (20:08)
[2024-11-23] MEDS: ASPIRIN 81 MG ECTAB PO SCH (20:08)
[2024-11-23] MEDS: DOCUSATE SODIUM 100 MG CAP PO SCH (20:08)
[2024-11-24] MEDS: oxyCODONE HCL IR 5 MG TAB (IMMEDIATE RELEASE) PO PRN (01:35)
[2024-11-24 03:30] VITALS: TEMP 97.5; O2SAT 97
[2024-11-24] MEDS: LEVOTHYROXINE SODIUM 75 MCG TABLET PO SCH (05:44)
--- NOTE | 2024-11-24 07:02 | Orthopedic Progress Note ---
Date of Service November 24, 2024 Assessment & Plan (1) Status post left knee replacement: Overall she is doing very well. She is not having much pain in the left knee. She will be seen by physical therapy today for ambulation and range of motion exercises. The nursing staff can change her dressing after physical therapy. She is on aspirin for DVT prophylaxis. She can be discharged to home later today. She will follow-up with orthopedics in 2 weeks. Cody Hinds was seen and examined at bedside this morning. Overall she is doing very well. She is not having much pain in the left knee. She has been up and ambulating to the bathroom. She has no complaints.. Review of Systems All systems reviewed & are unremarkable except as noted in HPI & below. Physical Exam On physical exam the left knee, the dressing is clean and dry. Her leg is out to full extension. She has active dorsiflexion plantarflexion of her left ankle.. Results & Data Results & Data Laboratory Results . Diagnostic Findings Postoperative x-rays of the left knee show the prosthesis to be in anatomic alignment without any evidence of fracture complication, or loosening.. PG Care Time/CCT Total # of Minutes Spent Total Time Spent with Patient: Total time spent is greater than 50% in coordination of care (as documented) at patient's floor/unit and/or counseling patient: Coding Level of Care Code 07701 Post Operative Follow-Up Diagnoses Status post left knee replacement Z96.652
--- NOTE | 2024-11-24 07:04 | Discharge Summary ---
Date of Service November 24, 2024 Principal Diagnosis Same as "Discharge Diagnosis" noted below under Discharge Instructions. Discharge Exam On physical exam the left knee, the dressing is clean and dry. Her leg is out to full extension. She has active dorsiflexion plantarflexion of her left ankle.. Discharge Data Procedures Performed Operation Date: 11/23/24 08:00 Actual Procedures p Left Total Knee Arthroplasty(Left) - Rambo Gauthier DO Ordered Studies 11/23/24 05:00 US - OR guided needle placemen Routine Hospital Course (1) Status post left knee replacement: On November 23, 2024 Lizet arrived at [facility] and underwent a left knee replacement without complication. She had a spinal anesthetic. Postoperatively, she was started on aspirin for DVT prophylaxis and transferred to the general orthopedic floors. Her hospital course was uneventful. On postop day #1, her vital signs were stable and her pain was well-controlled. She was able to participate well with physical therapy doing ambulation and range of motion exercises. She was then discharged to home. She will follow with orthopedics in 2 weeks. PG Care Time/CCT Total # of Minutes Spent Total Time Spent with Patient: Total time spent is greater than 50% in coordination of care (as documented) at patient's floor/unit and/or counseling patient: Discharge Plan Discharge Items Patient Disposition: Home - Self-Care Reason For Visit: Arthritis Knee Left Discharge Diagnosis: Status post left knee replacement Activity: Per Instructions section Non-emergency contact: Surgeon Call non-emergency contact if: your wound has increased redness and your wound has increased drainage Follow-up/Referrals: Praveen Nice MD [Primary Care Provider] - Diet: Regular Addtl Attending Provider Instructions: Activity and Therapy Recommendations: * If you are using [facility] then therapy will be provided at your home until they feel you have accomplished all of your goals. * If you are using [facility] then Physical Therapy will be provided until they feel you are ready to start Outpatient Physical Therapy. * If you are not using home therapy then Outpatient Physical Therapy should start about 3-5 days from your day of surgery. Therapy will last about 6-10 weeks * It is important not to put a pillow under your knee when you are relaxing or sleeping. It is just as important to make sure you are getting your knee perfectly straight as it is to regain your knee bend. * You were shown a series of exercises in the hospital. Do these exercises three times each day including the exercises you were shown in physical therapy. * Get up and walk several times each day. For the first four weeks, try not to stand or walk for more than one hour at a time. If you do stand or walk for more than one hour, you will not hurt anything, but your leg will likely swell. * As you feel comfortable, you may change from the walker or crutches to a cane and then to independent walking. Medications: * Narcotic You will likely be sent home from the hospital with a prescription for the narcotic pain medication that worked best throughout your stay. * Cefadroxil -take the antibiotic twice a day for 10 days to help prevent infection. * Aspirin Most patients will be required to take Aspirin 81mg twice a day for 6 weeks after surgery. This is obtained [id number] and a prescription is not necessary. * Other medications may be prescribed for specific circumstances. If you have any questions, please call the office at . * Resume previous home medications unless otherwise instructed TEDs/Elastic Stockings: The white elastic stockings help limit swelling and prevent blood clots from forming in your legs.~ The more you wear them, the more they work. Wear them for 2 weeks. Dressing Care: The dressing can be changed after physical therapy on postop day #1. Daily dry dressing changes for a few days, especially if the incision is still draining some. If the incision is not draining then you may leave the nicole open to air. If there is a little bit of drainage or if the nicole are getting stuck on your clothing then cover the incision with a dry dressing. The nicole will be removed at your 2 week follow-up appointment. Showering: You may shower 5 days from the day of surgery as long as the incision is no longer draining. You may shower with the nicole exposed. Let soapy water run over the nicole and pat them dry. Do not scrub or soak the incision. Diet: You may resume your previous diet. Things To Watch For: * Drainage from the incision site that occurs more than one week after your surgery. * Increased redness at the incision site. * Fever above 102 degrees Fahrenheit. * Unusual chest pain or shortness of breath. * Call [facility] at with any of the above problems Follow-Up Visit: Follow-up with Dr. Gauthier's office 2-3 weeks after your day of surgery. We will remove your nicole and answer any questions. If you have any additional questions or concerns, Dr Gauthier is usually in the office at the same time and will be available An appointment was probably scheduled when you signed-up for surgery in the office. If you have any questions call Office Instructions: More detailed instructions as well as Frequently Asked Questions were provided in a folder by our office when you signed-up for surgery. Please review these instructions when you get home. If you have any further questions or concerns, please feel free to call the office at [phone] Pending Studies at Discharge: No Stand-Alone Forms: [facility], Smoking Cessation Medications and DC Order Prescriptions: New cefadroxil 500 mg capsule 500 mg PO BID 10 Days Qty: 20 0RF oxycodone 5 mg tablet 5 mg PO Q6H PRN (Reason: pain) Qty: 30 0RF aspirin 81 mg Tablet,Delayed Release (Dr/Ec) 81 mg PO BID 42 Days Qty: 84 0RF [facility] See Rx Instructions .MEDSUPPLY Qty: 1 0RF Rx Instructions: As directed multivitamin Tablet 1 tab PO QAM lutein 1 tab PO QAM Rx Instructions: 1 tablet PO daily; cholecalciferol (vitamin D3) 50 mcg (2,000 unit) capsule 2,000 unit PO DAILY estradiol 0.01 % (0.1 mg/gram) cream 1 % vaginal UD Rx Instructions: 3xweek clobetasol 0.05 % cream 1 applic TOP BID PRN (Reason: Skin Irritation) tretinoin 0.1 % cream 1 applic TOP HS PRN (Reason: breakouts) fluticasone propionate 50 mcg/actuation spray,suspension 2 spray INTNAS DAILY PRN (Reason: Nasal Congestion) Saline Mist 0.65 % Aerosol,Girard 1 spray INTRANASAL BID PRN (Reason: Nasal Congestion) levothyroxine [Synthroid] 75 mcg tablet 75 mcg PO QAM ibuprofen [Advil] 200 mg Tablet 200 mg PO Q6H PRN (Reason: Pain) Mckean 3 Capsule 1 cap PO BID Probiotic 3 billion cell Capsule 3,000 mmu cells PO DAILY Rx Instructions: administer with a meal Neuromag 1 cap PO QAM lorazepam 0.5 mg tablet 0.5 mg PO UD PRN (Reason: anxiety) Rx Instructions: Take 1 tab PO 30-minutes prior to MRI then if needed may take the second t ablet PRN claustrophobia magnesium glycinate 1 tab PO DAILY Discharge Orders: Discharge Order (Routine); Ordered 11/24/24 Ordered By: Rambo Gauthier Admission Data Admit Date/Time: 11/23/24 11:23 Attending Provider: Rambo Gauthier Admit Provider: Rambo Gauthier Primary Care Provider: Praveen Nice
[2024-11-24 07:27] VITALS: PULSE 60; RESP 14
[2024-11-24] MEDS: MULTIVITAMIN TAB PO SCH (08:22)
[2024-11-24] MEDS: dexAMETHasone 4 MG TAB PO SCH (08:23)
[2024-11-24 10:40] VITALS: BP 110/63
== END 2024-11-24 11:49 | disposition home or self-care (01) ==
LOC: PACUINP 06:41 → ASU 06:41 → 3E 12:57